=== PATIENT | female | born 1995 | race Caucasian/White ===

== ENCOUNTER → 2018-06-12 | Outpatient (CLI) | payer OTHER ==
[~2018-06-12] MED LIST: CITA40TA12 PO
== END | disposition home or self-care (01) ==
LOC: C.LABSPEC 11:18
PROVIDERS: ATTEND Obstetrics & Gynecology
DX: Z34.82 Encounter for supervision of other normal pregnancy, second trimester (principal)

== ENCOUNTER → 2018-06-16 | Outpatient (CLI) | payer BC, OTHER | LOC: C.LAB1850 14:42 | PROVIDERS: ATTEND Obstetrics & Gynecology | DX: Z34.82 Encounter for supervision of other normal pregnancy, second trimester (principal) ==

== ENCOUNTER 2018-06-27 19:26 | Emergency (ER) | payer OTHER ==
[~2018-06-27] VITALS: Ht 149.9 cm; Wt 84.3 kg
[2018-06-27 19:28] VITALS: TEMP 36.7; Ht 149.9 cm; Wt 84.3 kg
[2018-06-27] MEDS ORDERED: KETOROLAC TROMETHAMINE 30 MG/ML VIAL IV STA (19:57)
[2018-06-27] MEDS ORDERED: TAMSULOSIN HCL 0.4 MG CAP PO ONE (20:00)
[2018-06-27 20:26] LABS: BASO % 0.1 %; BASO ABS # 0.01 K/uL (0-0.2); EOS % 0.6 %; EOS ABS # 0.06 K/uL (0-0.5); HEMATOCRIT 34.4 % (37-47); HEMOGLOBIN 11.3 g/dL (12.0-16.0); IG# 0.03 K/uL (0.00-0.02); LYMPH % 20.8 %; LYMPH ABS # 2.15 K/uL (1.2-3.4); MEAN CELL VOLUME 87.5 fL (80-100); MEAN CORPUSCULAR HEMOGLOBIN 28.8 pg (25-34); MEAN CORPUSCULAR HGB CONC 32.8 g/dl (32-36); MONO % 5.4 %; MONO ABS # 0.56 K/uL (0.11-0.59); NEUT % 72.8 %; NEUT ABS # 7.55 K/uL (1.4-6.5); PLATELET COUNT 229 K/uL (130-400); RED CELL DISTRIBUTION WIDTH CV 12.8 % (11.5-14.5); RED CELL DISTRIBUTION WIDTH SD 41.5 fL (36.4-46.3); WHITE BLOOD COUNT 10.36 K/uL (4.8-10.8)
[2018-06-27 20:40] LABS: BLOOD UREA NITROGEN 7 mg/dl (7-18); CARBON DIOXIDE 25 mmol/L (21-32); CREATININE 0.49 mg/dl (0.60-1.20); GLUCOSE 87 mg/dl (70-99); POTASSIUM 3.3 mmol/L (3.5-5.1); SODIUM 140 mmol/L (136-145)
--- NOTE | 2018-06-27 20:41 | EMERGENCY ROOM VISIT NOTE ---
History First contact with patient: 19:32 Chief Complaint: VAGINAL BLEEDING Stated Complaint: 16 WEEKS , SPOTTING/CRAMPING History of Present Illness The patient is a 23 year old female who presents to the Emergency Room with complaints of spotting and abdominal cramping that has been ongoing intermittently over the last several days. The patient is 16 weeks . She is . She did go into early labor with her first . She denies any infectious symptoms such as fever, chills or dysuria. The patient has not had any known problems with this . She is getting proper care. She has not tried anything [id number] for her symptoms. Review of Systems 10 system review performed and negative unless noted in HPI or below Past Medical/Surgical History Medical Problems: (1) No significant past medical history Surgical Problems: (1) No history of previous surgery Social History Smoking Status: Never Smoker Alcohol Use: none Marital Status: single Occupation Status: employed Current/Historical Medications Scheduled Citalopram Hydrobromide (Celexa), 40 MG PO DAILY Physical Exam Vital Signs Date Time Temp Pulse Resp B/P (MAP) Pulse Ox O2 Delivery O2 Flow Rate FiO2 06/27/18 22:09 88 18 127/65 96 06/27/18 21:11 71 16 132/67 99 Room Air 06/27/18 19:28 36.7 75 16 131/76 99 Room Air Physical Exam VITALS: Vitals are noted on the nurse's note and reviewed by myself. Vital signs stable. GENERAL: 23-year-old female, in no acute distress, nondiaphoretic, well- developed well-nourished. SKIN: The skin was without rashes, erythema, edema, or bruising. . HEAD: Normocephalic atraumatic. EYES: . Conjunctivae without injection, sclerae without icterus. Extraocular movements intact. MOUTH: Mucous membranes moist. NECK: Supple without nuchal rigidity. HEART: Regular rate and rhythm without murmurs gallops or rubs. LUNGS: Clear to auscultation bilaterally without wheezes, rales or rhonchi. No accessory muscle use. ABDOMEN: Positive bowel sounds x 4.Soft, gravid, nontender, without organomegaly. No guarding or rebound tenderness. MUSCULOSKELETAL: No muscle atrophy, erythema, or edema noted. NEURO: Patient was alert and oriented to person place and time. Normal sensation to touch. No focal neurological deficits. Medical Decision & Procedures ER Provider Diagnostic Interpretation: ultrasound IMPRESSION: Normal appearance of the single live second trimester with an composite estimated gestational age of 16 weeks 3 days and estimated date of delivery 12/09/2018. Electronically signed by: Carlos Foster M.D. 06/27/2018 8:59 PM Dictated Date/Time: 06/27/2018 8:56 PM The status of this report is Signed. Draft = Not yet reviewed or approved by Radiologist. Signed = Reviewed and approved by Radiologist. Laboratory Results 06/27/18 19:53 Red Blood Count 3.93, Mean Corpuscular Volume 87.5, Mean Corpuscular Hemoglobin 28.8, Mean Corpuscular Hemoglobin Concent 32.8, Mean Platelet Volume 10.0, Neutrophils (%) (Auto) 72.8, Lymphocytes (%) (Auto) 20.8, Monocytes (%) (Auto) 5.4, Eosinophils (%) (Auto) 0.6, Basophils (%) (Auto) 0.1, Neutrophils # (Auto) 7.55, Lymphocytes # (Auto) 2.15, Monocytes # (Auto) 0.56, Eosinophils # (Auto) 0.06, Basophils # (Auto) 0.01 06/27/18 19:53 Test 06/27/18 19:50 06/27/18 19:53 Urine Color YELLOW Urine Appearance CLEAR (CLEAR) Urine pH 5.5 (4.5-7.5) Urine Specific Brewster 1.009 (1.000-1.030) Urine Protein NEG (NEG) Urine Glucose (UA) NEG (NEG) Urine Ketones NEG (NEG) Urine Occult Blood NEG (NEG) Urine Nitrite NEG (NEG) Urine Bilirubin NEG (NEG) Urine Urobilinogen NEG (NEG) Urine Leukocyte Esterase NEG (NEG) White Blood Count 10.36 K/uL (4.8-10.8) Red Blood Count 3.93 M/uL (4.2-5.4) Hemoglobin 11.3 g/dL (12.0-16.0) Hematocrit 34.4 % (37-47) Mean Corpuscular Volume 87.5 fL (80-100) Mean Corpuscular Hemoglobin 28.8 pg (25-34) Mean Corpuscular Hemoglobin Concent 32.8 g/dl (32-36) Platelet Count 229 K/uL (130-400) Mean Platelet Volume 10.0 fL (7.4-10.4) Neutrophils (%) (Auto) 72.8 % Lymphocytes (%) (Auto) 20.8 % Monocytes (%) (Auto) 5.4 % Eosinophils (%) (Auto) 0.6 % Basophils (%) (Auto) 0.1 % Neutrophils # (Auto) 7.55 K/uL (1.4-6.5) Lymphocytes # (Auto) 2.15 K/uL (1.2-3.4) Monocytes # (Auto) 0.56 K/uL (0.11-0.59) Eosinophils # (Auto) 0.06 K/uL (0-0.5) Basophils # (Auto) 0.01 K/uL (0-0.2) RDW Standard Deviation 41.5 fL (36.4-46.3) RDW Coefficient of Variation 12.8 % (11.5-14.5) Immature Granulocyte % (Auto) 0.3 % Immature Granulocyte # (Auto) 0.03 K/uL (0.00-0.02) Anion Gap 8.0 mmol/L (3-11) Est Creatinine Clear Calc Drug Dose 171.1 ml/min Estimated GFR () > 150.0 Estimated GFR (Non- 139.3 BUN/Creatinine Ratio 15.0 (10-20) Calcium Level 9.0 mg/dl (8.5-10.1) Human Chorionic Gonadotropin, Quant 72868 mIU/mL ED Course Patient was seen and examined Vital signs including blood pressure were reviewed medications list was verified with patient Labs were obtained, and a saline lock was established Imaging was performed and reviewed The case was also discussed with my supervising physician who is in agreement with my plan. Upon reevaluation, the patient was resting comfortably in bed. We discussed her results. She voiced understanding, was comfortable being discharged home. I reviewed discharge instructions the patient. They voiced understanding and had no further questions. Medical Decision Differential diagnosis: Spotting during , threatened miscarriage, incomplete spontaneous , subchorionic hemorrhage, placental abruption, among others were entertained This patient is a 23-year-old female, 16 weeks , that presents to the emergency department complaining of intermittent cramping and light spotting for the last several days., Her vital signs are stable. Her abdomen was benign. Her workup reveals no leukocytosis. Her H&H is stable. Her blood type is O+-no need for RhoGam. An ultrasound was performed. There is a single viable fetus. Heart rate is appropriate. At this point, the etiology of the bleeding is unclear. It could be benign. There is a slight chance of miscarriage. This was relayed to the patient. I believe she is stable to be discharged home. I highly advised close follow-up from her [facility] doctor. She was comfortable with this plan. She was cautioned on signs for which to return to the emergency department. This chart was completed in part utilizing [employer] Experience Speech Voice Recognition software. Attempts were made to minimize the grammatical errors, random word insertions, pronoun errors and incomplete sentences. Any formal questions or concerns about the content, text or information contained within the body of this dictation should be directly addressed to the provider for clarification. Medication Reconcilliation Current Medication List: was personally reviewed by me Blood Pressure Screening Patient's blood pressure: Elevated blood pressure Blood pressure disposition: Did not require urgent referral Impression Primary Impression: Vaginal bleeding during Departure Information Dispostion Home / Self-Care Condition GOOD Referrals Rashard Sandoval D.O. (PCP) Devon Ellsworth M.D. Patient Instructions My [facility] Additional Instructions You were evaluated in the emergency department for spotting and cramping during . It is very important for you to follow-up with your [facility] doctor this week. Please call first thing Friday morning for a follow-up appointment. Please wear pads. Do not use tampons. Pelvic rest-nothing in the vagina (no sexual activity) until okay with [facility] Please do not hesitate to return to the emergency department with any new, worsening or concerning symptoms; especially, heavy bleeding such as greater than 2 pads per hour, severe pain or fever It was a pleasure participating in your care chelsea
--- NOTE | 2018-06-27 21:01 | DIAGNOSTIC IMAGING REPORT ---
LTD 1 OR MORE FETUSES CLINICAL HISTORY: 23 years-old Female presenting with bleeding cramping 16 weeks 3 days , spotting and cramping today, . TECHNIQUE: Real-time grayscale and M-mode Doppler ultrasound imaging of the pelvis was performed using a transabdominal probe. Color and spectral Doppler ultrasound imaging of the adnexa was also performed. COMPARISON: 04/12/2018. FINDINGS: Uterus: Single live intrauterine . Femur length 2.1 cm corresponding to gestational age of 16 weeks 1 day. Biparietal diameter 3.5 cm corresponding to a gestational age of 16 weeks 6 days. This is concordant with the patient's history. heart rate 143 beats per minute. Cephalic presentation. Normal amniotic fluid volume. Posterior placental implantation. No perigestational fluid to suggest hemorrhage. Cervix long and closed. Right adnexum: Right ovary not visualized. Left adnexum: Left ovary not visualized. Other: No free fluid. IMPRESSION: Normal appearance of the single live second trimester with an composite estimated gestational age of 16 weeks 3 days and estimated date of delivery 12/09/2018. Electronically signed by: Carlos Foster M.D. 06/27/2018 8:59 PM Dictated Date/Time: 06/27/2018 8:56 PM
[2018-06-27 22:09] VITALS: BP 127/65; PULSE 88; O2SAT 96
== END 2018-06-27 22:10 | disposition home or self-care (01) ==
LOC: C.EDB 19:27
DX: O20.9 Hemorrhage in early pregnancy, unspecified (principal); Z3A.16 16 weeks gestation of pregnancy; Z79.899 Other long term (current) drug therapy

== ENCOUNTER 2018-12-03 03:42 | Inpatient (IN) ==
--- NOTE | 2018-12-03 04:13 | History & Physical Report ---
Date of Service December 03, 2018 Assessment & Plan (1) Previous section: (2) Active labor at term: admit, iv, labs. wants to proceed with c/s. has urge to push. now informed had srom. fhts categ 2 History of Present Illness Chief Complaint: regular ctx, urge to push Primary Care Provider: Rashard Sandoval 23yo at 39+wks ega presents to L&D with cc as noted. She is due to have her elective repeat c/s this am but called overnight with ctx. No rom, no vb. + FM. She feels like she has to poop as well. Cx exam per nurse 5cm, bulging membranes. PNC c/b 1. prior c/s, desires repeat, declines even after presenting in active labor 2. anxiety pnl rh pos, ri, gbs neg obh: c/s x 1 gynh: nl pap, no stds pmh: gerd, h/o depression, anxiety, meneire's disease, heart murmur psh: tonsillectomy, c/s allg: nkda meds: pnv, zantac, prozac sh: no tob/etoh/drugs fh: no dariel anom or mr Allergies Allergy/AdvReac Type Severity Reaction Status Date / Time No Known Allergies Allergy Verified 11/27/18 14:17 Home Medications Home Medications Medication Instructions Recorded Confirmed Type fluoxetine [Prozac] 10 mg PO DAILY 12/01/18 12/01/18 History vit-iron fum-folic ac 1 tab PO DAILY 12/01/18 12/01/18 History [ Vitamin] ranitidine HCl [Zantac 75] 75 mg PO BID PRN 12/01/18 12/01/18 History Patient History Social History marital status: Single Current Living Situation: Parent and Family Current Living Situation Comment: live4s with parents Feels Safe at Home: Yes Smoking Status: Never smoker Second Hand Exposure: No Hx Alcohol Use: No Hx Substance Use: No Beliefs That Will Affect Care: None Preferred Language: Upper Sorbian Review of Systems per hpi Physical Exam 2 Constitutional: WD/WN, vitals as above Respiratory: Auscultation: lungs clear to auscultation bilaterally Cardiovascular: Rate/Rhythm: regular rate and regular rhythm Gastrointestinal (Abdomen): soft gravid nt Musculoskeletal: no edema Neurologic: grossly normal Genitourinary: Manual OB Exam: + cervical dilation 6 cm, + cervical effacement 90% and + station -2 OB Exam Monitor Tracing: + external FHT monitor used (125 mod variability, variable decels), + external uterine monitor used (q3) and + category II
[2018-12-03] MEDS ORDERED: LACTATED RINGER'S 1,000 ML IV SCH ×2 (04:15→15:13)
[2018-12-03] MEDS ORDERED: fentaNYL citrate 100 MCG/2 ML VIAL ONE ×2 (04:18→08:52)
[2018-12-03] MEDS ORDERED: ePHEDrine sulfate 50 MG/ML AMP ONE (04:18)
[2018-12-03] MEDS ORDERED: BUPIVACAINE 0.25% 30 ML VIAL ONE ×2 (04:18→08:53)
[2018-12-03] MEDS ORDERED: fentaNYL 2MCG/ML ROPIV 1.25MG/ML 100 ML BAG EPI ONE (04:19)
[2018-12-03 04:27] LABS: Basophils # (auto) 0.01 K/uL (0-0.2); Basophils % (auto) 0.1 %; Eosinophils # (auto) 0.06 K/uL (0-0.5); Eosinophils % (auto) 0.4 %; Hematocrit (blood only) 33.6 % (37-47); Immature Granulocytes # (auto) 0.04 K/uL (0.00-0.02); Immature Granulocytes % (auto) 0.3 %; Lymphocytes # (auto) 2.47 K/uL (1.2-3.4); Lymphocytes % (auto) 17.4 %; Mean Corpuscular Volume 82.2 fL (80-100); Mean Platelet Volume 10.1 fL (7.4-10.4); Monocytes # (auto) 0.89 K/uL (0.11-0.59); Monocytes % (auto) 6.3 %; Neutrophils % (auto) 75.5 %; Platelet Count 190 K/uL (130-400); RDW Coefficient of Variation 14.5 % (11.5-14.5); RDW Standard Deviation 43.4 fL (36.4-46.3); Red Blood Count 4.09 M/uL (4.2-5.4); White Blood Count 14.17 K/uL (4.8-10.8)
[2018-12-03] MEDS ORDERED: CITRIC ACID/SODIUM CITRATE 15 ML UDC PO SCH (04:30)
[2018-12-03] MEDS ORDERED: CEFAZOLIN 2,000 MG in SYRINGE 0 ML IV SCH (04:30)
--- NOTE | 2018-12-03 04:33 | Anesthesiology Consultation ---
Date of Service December 03, 2018 Assessment & Plan (1) Encounter for pre-operative examination: Chart Review Chart Review: Patient NOT seen in Pre Admission Testing and Acceptable Risk for Labor Epidural Consults Requested none ASA ASA2 Proposed Anesthesia Anesthesia Type: Labor Epidural and CSE Risk / Benefits Reviewed With: PT / POA / Parent / Guardian, Accepts Plan and Informed Consent Obtained NPO Date Last Intake of Fluids: 12/02/18 Time Last Intake of Fluids: 23:00 Date Last Intake of Solids: 12/02/18 Time Last Intake of Solids: 17:00 History Surgery Operation Date: 12/03/18 04:00 Proposed Procedures p Section in LD - Arleen Mcginnis MD, FACOG Allergies Allergy/AdvReac Type Severity Reaction Status Date / Time No Known Allergies Allergy Verified 11/27/18 14:17 Medications Home Medications Medication Instructions Recorded Confirmed Last Taken fluoxetine [Prozac] 10 mg PO DAILY 12/01/18 12/01/18 12/01/18 07:00 vit-iron fum-folic ac 1 tab PO DAILY 12/01/18 12/01/18 11/30/18 21:00 [ Vitamin] ranitidine HCl [Zantac 75] 75 mg PO BID PRN 12/01/18 12/01/18 12/01/18 07:00 Past Medical History Medical History Depression Anxiety GERD (gastroesophageal reflux disease) Anemia Temporomandibular joint disorder NO LOCKING Valvular heart disease MILD PI Past Family History Family History Mother Hypertension Grandmother Family history of diabetes mellitus Grandmother (Maternal) Family history of diabetes mellitus Past Surgical History Surgical History History of tonsillectomy Previous section 2014 2/2 DISTRESS AT [facility]= PATIENT UNSURE WHAT WAS DONE FAR ANESTHESIA (?GA); "KNOCKED OUT" 2/2 EMERGENT SITUATION History of colonoscopy History of esophagogastroduodenoscopy (EGD) Past Anesthesia History No Hx of Anesthesia Complications and No Family Hx of Anesthesia Complications History of PONV No Motion Sickness Screening History of Motion Sickness: No Social History Smoking Status: Never smoker Hx Alcohol Use: No Hx Substance Use: No substance use type: does not use Exercise / Class Metabolic Activity II 4-5 Yardwork/Stairs/Walk up hill Review of Systems no chest pain or sob Physical Exam ENMT Mouth: no TMJ abnormality Thyromental Distance: > or= 3.5 Finger Breadths Mallampati Class: II Neck normal visual inspection Respiratory normal respiratory effort Auscultation: lungs clear to auscultation bilaterally Cardiovascular Rate/Rhythm: regular rate and regular rhythm Musculoskeletal Spine: normal cervical ROM Neurologic moves all extremities Psychiatric Orientation: alert and oriented x 3 Testing Laboratory Results 12/03/18 04:18
[2018-12-03 04:36] LABS: Mean Corpuscular Hgb Conc 32.7 g/dL (32-36)
--- NOTE | 2018-12-03 05:18 | Obstetrical Progress Note ---
Date of Service December 03, 2018 Assessment & Plan (1) Previous section: (2) Active labor at term: (3) Desires (vaginal after ) trial: pt now desires attempt at . has discussed this with her family and is sure this is what she want to try. aware of risks/alternatives. cannot guarantee that vaginal will be possible or uncomplicated. she desires to proceed. will see how arom advances her labor. fhts categ 2 Subjective now comfortable with epidural. she wants to trial Physical Exam 2 Vital Signs (Past 24 Hours): Last Vital Signs Pulse 78 12/03/18 05:11 BP 141/83 H 12/03/18 05:11 Pulse Ox 99 12/03/18 05:11 Genitourinary: Manual OB Exam: + cervical dilation 9 cm, + cervical effacement 100%, + station -1 and + amniotic fluid (arom) clear OB Exam Monitor Tracing: + external FHT monitor used (130 mod variability, small accels) , + external uterine monitor used (q2-3) and + normal FHT variability
[2018-12-03] MEDS ORDERED: fentaNYL 2MCG/ML ROPIV 1.25MG/ML 100 ML BAG EPI PRN (05:31)
[2018-12-03] MEDS ORDERED: NALBUPHINE HCL INJ 10 MG/ML AMP IV PRN ×2 (05:31→12:19)
[2018-12-03] MEDS ORDERED: LACTATED RINGER'S 1,000 ML IV PRN (05:31)
[2018-12-03] MEDS ORDERED: NALOXONE HCL 1 MG in SODIUM CHLORIDE 0.9% 1000ML 1,000 ML IV PRN ×2 (05:31→12:19)
[2018-12-03] MEDS ORDERED: ONDANSETRON INJ 2 MG/ML 2 ML VIAL IV PRN ×2 (05:31→12:19)
[2018-12-03] MEDS ORDERED: ePHEDrine sulfate 50 MG/ML AMP IV PRN ×2 (05:31→12:19)
[2018-12-03] MEDS ORDERED: DiphenhydrAMINE HCL 50 MG/ML VIAL IV PRN ×2 (05:31→12:19)
[2018-12-03] MEDS ORDERED: NALOXONE HCL 0.4 MG/1 ML VIAL/CARP IV PRN ×2 (05:31→12:19)
[2018-12-03] MEDS: LACTATED RINGER'S 1,000 ML IV SCH ×2 (05:44→10:06)
--- NOTE | 2018-12-03 08:24 | Labor Progress Brief Note ---
Date of Service December 03, 2018 Subjective Pretty comfortable Assessment & Plan (1) Desires (vaginal after ) trial: continue current management. Physical Exam 2 Vital Signs (Past 24 Hours): Last Vital Signs Temp 36.5 C 12/03/18 07:14 Pulse 71 12/03/18 08:21 Resp 20 12/03/18 07:14 BP 127/66 12/03/18 08:21 Pulse Ox 100 12/03/18 08:21 Constitutional: WD/WN, vitals as above Genitourinary: cx--9/100/-2 toco--q2-4min efm--120s with mod variability, accels present, early decels with contractions
--- NOTE | 2018-12-03 09:09 | Anesthesiology Progress Note ---
Date of Service December 03, 2018 Pt c/o pain 8/10. At 0903,pt. epidural was bolused w/ 12 ml 0.17% bupivacaine + 100 mcgs fentanyl + 2 ml preserv. free 0.9nss;neg. aspiration for CSF or Blood; Vital signs were stable. Physical Exam Vital Signs Last Vital Signs Temp 36.6 C 12/03/18 08:59 Pulse 87 12/03/18 09:01 Resp 20 12/03/18 08:59 BP 133/74 12/03/18 08:49 Pulse Ox 100 12/03/18 09:01 Results & Data Medications Administered Lactated Ringer's (Lr) 1,000 mls @ 125 mls/hr IV .Q8H MISSY Stop: 01/02/19 05:04 Last Admin: 12/03/18 05:44 Dose: 125 mls/hr Lactated Ringer's (Lr) 1,000 mls @ 999 mls/hr IV .Q1H1M PRN PRN Reason: Hypotension Stop: 12/04/18 05:30 Last Admin: 12/03/18 08:17 Dose: 999 mls/hr
[2018-12-03] MEDS ORDERED: CITRIC ACID/SODIUM CITRATE 15 ML UDC ONE (10:13)
--- NOTE | 2018-12-03 10:30 | Labor Progress Brief Note ---
Date of Service December 03, 2018 Subjective comfortable after redosing epidural Assessment & Plan (1) Desires (vaginal after ) trial: I have checked the patient three times now. checked her originally after epidural and was . AFter arom I checked at about 7 am and 2. Checked again just now at 10 am and unchanged. At this point, need to either add some gentle pitocin and see if can get this baby to descend and get the rest of the cervix to go away. Then she will need to push. Or proceed with c/ s. The baby is looking better with fewer variables. I am concerned that the baby has not descended basically since I first checked her around 5am. Discussed the pros/cons of pit vs moving forward with c/s. AFter discussion, she would like to move forward with c/s. I am comfortable with giving gentle pitocin, but she does not wish to go any further. r/b/se of c/s had been reviewed by me in the office yesterday as she was a scheduled c/s. Consent resigned as cannot locate other consent. Physical Exam 2 Vital Signs (Past 24 Hours): Last Vital Signs Temp 36.6 C 12/03/18 08:59 Pulse 89 12/03/18 10:26 Resp 20 12/03/18 08:59 BP 137/75 12/03/18 10:12 Pulse Ox 100 12/03/18 10:26 Genitourinary: cx--2 toco--q2-3min efm--120s with mod variability, small early and variables
[2018-12-03] MEDS ORDERED: LIDOCAINE/EPINEPHRINE 2% 1:200,000 20 ML SDV ONE (10:45)
[2018-12-03] MEDS ORDERED: OXYTOCIN 10 UNITS/ML VIAL ONE ×2 (10:46→12:05)
[2018-12-03] MEDS ORDERED: PROMETHAZINE HCL INJ 25 MG/ML 1 ML VIAL ONE (11:45)
[2018-12-03] MEDS ORDERED: MIDAZOLAM HCL 1 MG/ML 2ML VIAL ONE (11:46)
[2018-12-03] MEDS ORDERED: ONDANSETRON INJ 2 MG/ML 2 ML VIAL ONE (11:48)
[2018-12-03] MEDS ORDERED: DEXAMETHASONE SOD INJ 4 MG/ML VIAL ONE (11:50)
[2018-12-03] MEDS ORDERED: MoRPHine SULFATE PF 1 MG/ML 10 ML AMP/VIAL ONE (11:58)
--- NOTE | 2018-12-03 12:08 | Post Operative Brief Note ---
Immediate Post Op Note v1 Date of Surgery December 03, 2018 Pre & Post Diagnosis pre-op diagnosis--iup at 39 1/7 weeks failure to progress failed trial of labor post-op diagnosis--same Operation Date: 12/03/18 04:00 <No data on this case meets the specified criteria> Procedure Operation Date: 12/03/18 04:00 Repeat lower transverse <No data on this case meets the specified criteria> Surgeon Sherie Edwards MD, FACOG Lead Business Analyst Dr. Dominguez, pgy 1 Estimated Blood Loss 700 Findings Consistent with Post-Op Diagnosis Drains Douglas Catheter (16 F Douglas catheter placed prior to entry to OR - anesthesia will monitor output throughout case)
[2018-12-03] MEDS ORDERED: OXYTOCIN 20 UNITS in LACTATED RINGER'S 1,000 ML IV SCH (12:15)
[2018-12-03] MEDS ORDERED: NALOXONE HCL 0.08 MG in SYRINGE 1.8 ML IV PRN (12:19)
[2018-12-03] MEDS ORDERED: PROMETHAZINE HCL 25 MG in SODIUM CHLORIDE 0.9% 50 ML IV PRN (12:19)
[2018-12-03] MEDS ORDERED: MoRPHine SULFATE PF 1 MG/ML 10 ML AMP/VIAL EPI ONE (12:19)
[2018-12-03] MEDS ORDERED: LACTATED RINGER'S 500 ML IV PRN (12:19)
--- NOTE | 2018-12-03 12:19 | Anesthesia Procedure Note ---
Date of Service December 03, 2018 Anesthesia Post Epidural Note Vital Signs Vital Signs: Temp Pulse Resp BP Pulse Ox 12/03/18 11:00 113 H 145/69 H 12/03/18 10:57 105 H 20 151/78 H 12/03/18 10:56 107 H 100 12/03/18 10:54 100 H 140/69 12/03/18 10:51 122 H 100 12/03/18 10:46 93 H 100 12/03/18 10:42 100 H 139/75 12/03/18 10:41 87 100 12/03/18 10:36 89 100 12/03/18 10:31 97 H 100 12/03/18 10:27 103 H 139/78 12/03/18 10:26 89 100 12/03/18 10:21 105 H 100 12/03/18 10:16 92 H 100 12/03/18 10:12 90 137/75 12/03/18 10:11 100 H 100 12/03/18 10:06 88 100 12/03/18 10:01 100 H 18 100 12/03/18 09:57 99 H 134/79 12/03/18 09:56 87 100 12/03/18 09:51 102 H 100 12/03/18 09:46 84 100 12/03/18 09:42 99 H 133/76 12/03/18 09:41 96 H 100 12/03/18 09:36 107 H 136/75 100 12/03/18 09:31 105 H 130/67 100 12/03/18 09:26 101 H 100 12/03/18 09:25 86 120/74 12/03/18 09:21 104 H 100 12/03/18 09:20 86 130/82 12/03/18 09:18 101 H 127/78 12/03/18 09:16 81 127/75 100 12/03/18 09:14 108 H 137/76 12/03/18 09:11 113 H 123/68 99 12/03/18 09:10 90 123/64 12/03/18 09:08 90 114/69 12/03/18 09:06 105 H 119/73 100 12/03/18 09:01 87 100 12/03/18 08:59 36.6 C 20 12/03/18 08:56 98 H 100 12/03/18 08:51 112 H 100 12/03/18 08:49 86 133/74 12/03/18 08:46 93 H 99 12/03/18 08:41 86 100 12/03/18 08:36 79 100 12/03/18 08:33 85 133/72 12/03/18 08:31 81 119/68 100 12/03/18 08:29 91 H 118/64 12/03/18 08:27 89 117/60 12/03/18 08:26 84 100 12/03/18 08:25 85 116/58 L 12/03/18 08:24 87 123/74 12/03/18 08:21 71 127/66 100 12/03/18 08:19 82 121/65 12/03/18 08:17 71 112/55 L 12/03/18 08:16 77 99 12/03/18 08:15 90 114/57 L 12/03/18 08:14 94 H 118/53 L 12/03/18 08:11 92 H 100 12/03/18 08:09 93 H 138/76 12/03/18 08:08 20 12/03/18 08:06 78 100 12/03/18 08:01 79 100 12/03/18 07:56 108 H 98 12/03/18 07:54 78 127/69 12/03/18 07:51 84 100 12/03/18 07:46 106 H 100 12/03/18 07:41 114 H 100 12/03/18 07:39 98 H 137/76 12/03/18 07:36 96 H 98 12/03/18 07:31 94 H 97 12/03/18 07:26 94 H 99 12/03/18 07:23 85 138/78 12/03/18 07:21 92 H 100 12/03/18 07:16 87 97 12/03/18 07:14 36.5 C 20 12/03/18 07:11 98 H 100 12/03/18 07:09 88 93 12/03/18 07:08 36.5 C 80 20 132/72 12/03/18 07:06 80 97 12/03/18 07:01 85 99 12/03/18 06:56 83 100 12/03/18 06:53 100 H 126/73 12/03/18 06:51 101 H 100 12/03/18 06:46 92 H 100 12/03/18 06:41 82 98 12/03/18 06:38 81 134/74 12/03/18 06:36 80 100 12/03/18 06:31 82 100 12/03/18 06:26 79 99 12/03/18 06:24 73 141/67 H 12/03/18 06:21 77 99 12/03/18 06:16 89 98 12/03/18 06:11 73 98 12/03/18 06:09 75 121/64 12/03/18 06:06 71 98 12/03/18 06:01 74 100 12/03/18 05:56 81 100 12/03/18 05:54 76 127/79 12/03/18 05:51 68 100 12/03/18 05:46 81 100 12/03/18 05:41 74 100 12/03/18 05:38 74 118/57 L 12/03/18 05:36 70 100 12/03/18 05:31 77 100 12/03/18 05:26 72 100 12/03/18 05:23 72 120/62 12/03/18 05:21 88 99 12/03/18 05:17 83 140/86 12/03/18 05:16 73 100 12/03/18 05:11 78 141/83 H 99 12/03/18 05:08 80 135/76 12/03/18 05:06 75 98 12/03/18 05:05 77 136/78 12/03/18 05:02 82 134/78 12/03/18 05:01 79 99 12/03/18 04:59 78 133/73 12/03/18 04:56 78 130/70 97 12/03/18 04:53 68 125/67 12/03/18 04:51 72 99 12/03/18 04:50 71 127/66 12/03/18 04:47 72 125/67 12/03/18 04:46 73 99 12/03/18 04:44 88 119/65 12/03/18 04:41 98 H 99 12/03/18 04:36 94 H 100 12/03/18 04:35 79 141/73 H 12/03/18 03:45 36.5 C 71 24 130/70 Pain Intensity Bilateral Abdomen: Pain Intensity: 7 Notes Mental Status: alert / awake / arousable Nausea / Vomiting: adequately controlled Pain: adequately controlled Airway Patency, RR, SpO2: stable & adequate BP & HR: stable & adequate Hydration State: stable & adequate Neuraxial Anesthesia: was administered Anesthetic Complications: no major complications apparent Epidural: Removed without complications and With tip intact Notes: epidural cath removed in OR at 1214pm w/ tip intact
--- NOTE | 2018-12-03 12:28 | Anesthesiology Progress Note ---
Date of Service December 03, 2018 Anesthesia Post Procedure Vital Signs Vital Signs: Temp Pulse Resp BP Pulse Ox 12/03/18 12:26 97 H 100 12/03/18 12:21 104 H 97/60 L 98 12/03/18 11:00 113 H 145/69 H 12/03/18 10:57 105 H 20 151/78 H 12/03/18 10:56 107 H 100 12/03/18 10:54 100 H 140/69 12/03/18 10:51 122 H 100 12/03/18 10:46 93 H 100 12/03/18 10:42 100 H 139/75 12/03/18 10:41 87 100 12/03/18 10:36 89 100 12/03/18 10:31 97 H 100 12/03/18 10:27 103 H 139/78 12/03/18 10:26 89 100 12/03/18 10:21 105 H 100 12/03/18 10:16 92 H 100 12/03/18 10:12 90 137/75 12/03/18 10:11 100 H 100 12/03/18 10:06 88 100 12/03/18 10:01 100 H 18 100 12/03/18 09:57 99 H 134/79 12/03/18 09:56 87 100 12/03/18 09:51 102 H 100 12/03/18 09:46 84 100 12/03/18 09:42 99 H 133/76 12/03/18 09:41 96 H 100 12/03/18 09:36 107 H 136/75 100 12/03/18 09:31 105 H 130/67 100 12/03/18 09:26 101 H 100 12/03/18 09:25 86 120/74 12/03/18 09:21 104 H 100 12/03/18 09:20 86 130/82 12/03/18 09:18 101 H 127/78 12/03/18 09:16 81 127/75 100 12/03/18 09:14 108 H 137/76 12/03/18 09:11 113 H 123/68 99 12/03/18 09:10 90 123/64 12/03/18 09:08 90 114/69 12/03/18 09:06 105 H 119/73 100 12/03/18 09:01 87 100 12/03/18 08:59 36.6 C 20 12/03/18 08:56 98 H 100 12/03/18 08:51 112 H 100 12/03/18 08:49 86 133/74 12/03/18 08:46 93 H 99 12/03/18 08:41 86 100 12/03/18 08:36 79 100 12/03/18 08:33 85 133/72 12/03/18 08:31 81 119/68 100 12/03/18 08:29 91 H 118/64 12/03/18 08:27 89 117/60 12/03/18 08:26 84 100 12/03/18 08:25 85 116/58 L 12/03/18 08:24 87 123/74 12/03/18 08:21 71 127/66 100 12/03/18 08:19 82 121/65 12/03/18 08:17 71 112/55 L 12/03/18 08:16 77 99 12/03/18 08:15 90 114/57 L 12/03/18 08:14 94 H 118/53 L 12/03/18 08:11 92 H 100 12/03/18 08:09 93 H 138/76 12/03/18 08:08 20 12/03/18 08:06 78 100 12/03/18 08:01 79 100 12/03/18 07:56 108 H 98 12/03/18 07:54 78 127/69 12/03/18 07:51 84 100 12/03/18 07:46 106 H 100 12/03/18 07:41 114 H 100 12/03/18 07:39 98 H 137/76 12/03/18 07:36 96 H 98 12/03/18 07:31 94 H 97 12/03/18 07:26 94 H 99 12/03/18 07:23 85 138/78 12/03/18 07:21 92 H 100 12/03/18 07:16 87 97 12/03/18 07:14 36.5 C 20 12/03/18 07:11 98 H 100 12/03/18 07:09 88 93 12/03/18 07:08 36.5 C 80 20 132/72 12/03/18 07:06 80 97 12/03/18 07:01 85 99 12/03/18 06:56 83 100 12/03/18 06:53 100 H 126/73 12/03/18 06:51 101 H 100 12/03/18 06:46 92 H 100 12/03/18 06:41 82 98 12/03/18 06:38 81 134/74 12/03/18 06:36 80 100 12/03/18 06:31 82 100 12/03/18 06:26 79 99 12/03/18 06:24 73 141/67 H 12/03/18 06:21 77 99 12/03/18 06:16 89 98 12/03/18 06:11 73 98 12/03/18 06:09 75 121/64 12/03/18 06:06 71 98 12/03/18 06:01 74 100 12/03/18 05:56 81 100 12/03/18 05:54 76 127/79 12/03/18 05:51 68 100 12/03/18 05:46 81 100 12/03/18 05:41 74 100 12/03/18 05:38 74 118/57 L 12/03/18 05:36 70 100 12/03/18 05:31 77 100 12/03/18 05:26 72 100 12/03/18 05:23 72 120/62 12/03/18 05:21 88 99 12/03/18 05:17 83 140/86 12/03/18 05:16 73 100 12/03/18 05:11 78 141/83 H 99 12/03/18 05:08 80 135/76 12/03/18 05:06 75 98 12/03/18 05:05 77 136/78 12/03/18 05:02 82 134/78 12/03/18 05:01 79 99 12/03/18 04:59 78 133/73 12/03/18 04:56 78 130/70 97 12/03/18 04:53 68 125/67 12/03/18 04:51 72 99 12/03/18 04:50 71 127/66 12/03/18 04:47 72 125/67 12/03/18 04:46 73 99 12/03/18 04:44 88 119/65 12/03/18 04:41 98 H 99 12/03/18 04:36 94 H 100 12/03/18 04:35 79 141/73 H 12/03/18 03:45 36.5 C 71 24 130/70 Pain Intensity Bilateral Abdomen: Pain Intensity: 7 Notes Mental Status: alert / awake / arousable Patient Amnestic to Procedure: Yes Nausea / Vomiting: adequately controlled Pain: adequately controlled Airway Patency, RR, SpO2: stable & adequate BP & HR: stable & adequate Hydration State: stable & adequate Anesthetic Complications: no major complications apparent
[2018-12-03] MEDS ORDERED: NO NARCOTICS OR SEDATIVES SCH (12:30)
[2018-12-03] MEDS ORDERED: DC INTRASPINAL MORPHINE SCH (12:30)
[2018-12-03] MEDS ORDERED: SODIUM CHLORIDE 0.9% 1000ML 1,000 ML IV SCH (12:30)
--- NOTE | 2018-12-03 12:56 | Operative Report ---
DATE OF OPERATION: 12/03/2018 PREOPERATIVE DIAGNOSES: 1. Intrauterine at 39 and 1/7 weeks. 2. Active labor. 3. Failure to descend and progress. 4. Failed trial of labor. POSTOPERATIVE DIAGNOSES: 1. Intrauterine at 39 and 1/7 weeks. 2. Active labor. 3. Failure to descend and progress. 4. Failed trial of labor. PROCEDURE: Repeat lower transverse section with a left cervical extension. SURGEON: Sherie Edwards MD AUTO BODY ESTIMATOR: Alberto, PGY-1. ESTIMATED BLOOD LOSS: 700 mL. FLUIDS: 1600 mL. URINE OUTPUT: 200 mL of dark concentrated urine drained from the bladder at the end of the procedure. INDICATIONS: The patient is a 2, para 1-0-0-1 who is scheduled for a repeat section on the morning of admission. She presented to labor and delivery in active labor at 8-9 cm dilated with a bulging bag. She received an epidural anesthetic and became comfortable and decided that she would like to try a trial of labor. Amniotomy was performed for clear fluid. I checked the patient's cervix at 5 a.m. after the epidural, she was 8, 90, -2. I checked her at 7:00 a.m. after rupture of membranes previously and she was 9, 90 and -2. I checked her again at 10:00 and she was 9, 90 and -2. The fetus was category 2 throughout labor with variables with contractions, but good variability. We had a long discussion at this point in time about instituting gentle dilute Pitocin to see if we could get the cervix to go away and the baby to come down in the pelvis or to proceed with a section. The risks, benefits and side effects of both were discussed with the patient and she decided to proceed with section. FINDINGS: At the time of surgery reveal a viable male in OA presentation, significant coning to the head. No nuchal cord. Apgars were 8 and 9. Fluid was clear. Uterus, tubes, and ovaries were normal bilaterally. COMPLICATIONS: Left cervical extension that was identified and repaired. DRAINS: Douglas. DISPOSITION: To recovery room in stable condition. DESCRIPTION OF PROCEDURE: The patient was taken to the operating room where she was identified verbally and by bracelet. She was transferred to the operating table, placed in leftward tilt. A Douglas catheter had previously been placed. The patient had used the hexidine wipes for wiping herself off the night before surgery noted significant redness and itching of the skin, so a Betadine prep was performed. She was prepped and draped in normal sterile fashion. Timeout was held, identifying correct patient, procedure, positioning, equipment and preoperative antibiotics. There were no concerns. A Pfannenstiel skin incision was made with the knife and taken down to the underlying layer of fascia with the knife. Bleeding was attended to with Bovie electrocautery. The fascia was incised with a knife and taken out laterally with scissors. The superior edge of the fascial incision was grasped, elevated and the underlying layer of rectus muscle was taken off bluntly with scissors and cautery. In a similar fashion, the inferior edge of the fascial incision was grasped, elevated and the underlying layer of rectus muscle was taken off bluntly and with cautery. The muscles were bluntly in the midline. The peritoneum was entered sharply with scissors. An armoring machine operator's finger was placed into the abdomen and no adhesions were noted. The peritoneum was taken superiorly and inferiorly with good visualization of the bladder. An incision was stretched. Bladder blade was placed. The bladder had healed high and there were several veins noted at the bladder edge. Bladder flap was created by grasping the vesicouterine peritoneum with a snap entering with scissors, taken out laterally and creating the bladder flap digitally. The bladder blade was replaced. The lower uterine segment was intact. A hysterotomy incision was scored with the knife. The uterus was entered with a snap and the incision was stretched with the armoring machine operator's fingers. The armoring machine operator's hand was placed into the hysterotomy incision and the head was delivered atraumatically up through the incision. It was wedged into the pelvis. There was no nuchal cord. The nose and mouth were bulb suctioned. The rest of the infant was then delivered without difficulty, there was a cry on the operating field, the cord was clamped and cut and handed off to the waiting vice president research for drying and attention. Cord blood and segment were obtained. Placenta was manually extracted and the uterus was cleared of all clot and debris with moistened laparotomy sponges. The uterus was exteriorized. The edges of the incision were noted and there was a left cervical extension. This was identified. The cornua was identified and it was reapproximated starting at the bottom left of the cervical excision making its way up into the midline and then another stitch was begun at the right corner of the incision, carried to the midline. Once this was identified, an imbricating stitch was placed over this incision. The posterior cul-de-sac was irrigated and cleared of all clot and debris. The incision was again inspected and found to be hemostatic; however, when placed back into the uterus, there was found to be a bleeding artery at the left edge of the cervical extension. This was very carefully attended to with a couple of [id number] sutures of 0 Vicryl, being careful to draw away accessory tissue and stay close to the uterine/cervical edge. Once hemostasis was assured, Evista was placed over the incision for attention to some slight oozing edges at the left cervical extension. The muscles were then reapproximated in the midline with interrupted sutures of 0 Vicryl. The rectus muscles were examined and found to be hemostatic. The fascia was reapproximated starting at the edges meeting in the midline. Subcuticular tissue was copiously irrigated with warm normal saline. Bleeding was attended to with Bovie electrocautery and the skin was then closed with subcuticular stitch of 4-0 Vicryl. All sponge, needle counts were correct x2. The patient tolerated the procedure well and was taken to the recovery room in stable condition. I attest to the content of the Intraoperative Record and any orders documented therein. Any exception s are noted below.
[2018-12-03] MEDS ORDERED: MAGNESIUM HYDROXIDE SUSP 30 ML UDC PO PRN (15:13)
[2018-12-03] MEDS ORDERED: SUPERCREAM 0.870% 15 GM JAR EXT PRN (15:13)
[2018-12-03] MEDS ORDERED: SENNA 8.6 MG TAB PO PRN (15:13)
[2018-12-03] MEDS ORDERED: BENZOCAINE 20% AER SPR 82.5 GM CAN EXT PRN (15:13)
[2018-12-03] MEDS ORDERED: HYDROCORTISONE ACETATE 25 MG SUPP PR PRN (15:13)
[2018-12-03] MEDS ORDERED: DIPHTHERIA/TETANUS/PERTUSSIS 0.5 ML SYR/VIAL IM ONE (15:13)
[2018-12-03] MEDS: SIMETHICONE 80 MG CHEW PO SCH ×3 (16:41→19:41)
[2018-12-03] MEDS: KETOROLAC 30 MG/ML VIAL IV PRN (17:14)
[2018-12-03] MEDS: DOCUSATE SODIUM 100 MG CAP PO SCH (19:41)
[2018-12-04] MEDS: KETOROLAC 30 MG/ML VIAL IV PRN (01:55)
[2018-12-04] MEDS ORDERED: ONDANSETRON INJ 2 MG/ML 2 ML VIAL IV PRN (06:20)
[2018-12-04] MEDS ORDERED: KETOROLAC 30 MG/ML VIAL IV PRN (06:20)
[2018-12-04] MEDS ORDERED: MEPERIDINE HCL 50 MG/ML CARP IV PRN (06:20)
[2018-12-04] MEDS ORDERED: DiphenhydrAMINE HCL 50 MG/ML VIAL IV PRN (06:20)
[2018-12-04] MEDS ORDERED: PROMETHAZINE HCL 25 MG in SODIUM CHLORIDE 0.9% 50 ML IV PRN (06:20)
[2018-12-04 07:22] LABS: Hematocrit (blood only) 24.4 % (37-47); Hemoglobin 7.9 g/dL (12.0-16.0); Mean Corpuscular Hgb Conc 32.4 g/dL (32-36); Mean Corpuscular Volume 82.4 fL (80-100); Mean Platelet Volume 9.6 fL (7.4-10.4); Platelet Count 198 K/uL (130-400); RDW Coefficient of Variation 14.9 % (11.5-14.5); RDW Standard Deviation 44.8 fL (36.4-46.3); Red Blood Count 2.96 M/uL (4.2-5.4); White Blood Count 17.61 K/uL (4.8-10.8)
--- NOTE | 2018-12-04 07:33 | Anesthesiology Progress Note ---
Date of Service December 04, 2018 Anesthesia Post Procedure Vital Signs Vital Signs: Temp Pulse Pulse Resp BP BP Pulse Ox 12/04/18 05:12 16 95 12/04/18 04:23 14 95 12/04/18 03:30 37 C 88 16 93/42 L 97 12/04/18 02:19 16 97 12/04/18 01:16 16 94 12/04/18 00:30 16 97 12/03/18 23:55 36.8 C 81 16 109/50 L 96 12/03/18 22:42 16 95 12/03/18 21:40 18 98 12/03/18 20:40 16 98 12/03/18 19:40 36.6 C 16 106/60 98 12/03/18 18:40 14 95 12/03/18 17:40 18 99 12/03/18 16:40 16 99 12/03/18 15:50 37 C 18 120/66 98 12/03/18 14:40 36.8 C 18 118/64 100 12/03/18 14:26 80 100 12/03/18 14:21 79 100 12/03/18 14:19 76 137/78 12/03/18 14:16 77 100 12/03/18 14:15 36.7 C 18 12/03/18 14:11 85 100 12/03/18 14:06 82 100 12/03/18 14:01 73 100 12/03/18 13:56 78 100 12/03/18 13:51 78 100 12/03/18 13:49 74 138/69 12/03/18 13:46 79 100 12/03/18 13:45 18 12/03/18 13:41 78 100 12/03/18 13:38 76 88 L 12/03/18 13:36 80 100 12/03/18 13:31 84 100 12/03/18 13:26 88 100 12/03/18 13:21 88 100 12/03/18 13:18 85 147/68 H 12/03/18 13:16 88 20 100 12/03/18 13:15 20 12/03/18 13:11 76 100 12/03/18 13:08 79 114/63 12/03/18 13:06 82 100 12/03/18 13:05 20 12/03/18 13:01 85 100 12/03/18 12:58 90 107/58 L 12/03/18 12:56 79 100 12/03/18 12:55 18 12/03/18 12:51 83 100 12/03/18 12:48 88 101/58 L 12/03/18 12:46 88 100 12/03/18 12:45 20 12/03/18 12:41 95 H 100 12/03/18 12:38 96 H 103/62 12/03/18 12:36 82 100 12/03/18 12:35 20 12/03/18 12:31 101 H 100 12/03/18 12:28 88 95/54 L 12/03/18 12:26 97 H 100 12/03/18 12:25 18 12/03/18 12:21 104 H 97/60 L 98 12/03/18 12:16 36.5 C 18 12/03/18 11:00 113 H 145/69 H 12/03/18 10:57 105 H 20 151/78 H 12/03/18 10:56 107 H 100 12/03/18 10:54 100 H 140/69 12/03/18 10:51 122 H 100 12/03/18 10:46 93 H 100 12/03/18 10:42 100 H 139/75 12/03/18 10:41 87 100 12/03/18 10:36 89 100 12/03/18 10:31 97 H 100 12/03/18 10:27 103 H 139/78 12/03/18 10:26 89 100 12/03/18 10:21 105 H 100 12/03/18 10:16 92 H 100 12/03/18 10:12 90 137/75 12/03/18 10:11 100 H 100 12/03/18 10:06 88 100 12/03/18 10:01 100 H 18 100 12/03/18 09:57 99 H 134/79 12/03/18 09:56 87 100 12/03/18 09:51 102 H 100 12/03/18 09:46 84 100 12/03/18 09:42 99 H 133/76 12/03/18 09:41 96 H 100 12/03/18 09:36 107 H 136/75 100 12/03/18 09:31 105 H 130/67 100 12/03/18 09:26 101 H 100 12/03/18 09:25 86 120/74 12/03/18 09:21 104 H 100 12/03/18 09:20 86 130/82 12/03/18 09:18 101 H 127/78 12/03/18 09:16 81 127/75 100 12/03/18 09:14 108 H 137/76 12/03/18 09:11 113 H 123/68 99 12/03/18 09:10 90 123/64 12/03/18 09:08 90 114/69 12/03/18 09:06 105 H 119/73 100 12/03/18 09:01 87 100 12/03/18 08:59 36.6 C 20 12/03/18 08:56 98 H 100 12/03/18 08:51 112 H 100 12/03/18 08:49 86 133/74 12/03/18 08:46 93 H 99 12/03/18 08:41 86 100 12/03/18 08:36 79 100 12/03/18 08:33 85 133/72 12/03/18 08:31 81 119/68 100 12/03/18 08:29 91 H 118/64 12/03/18 08:27 89 117/60 12/03/18 08:26 84 100 12/03/18 08:25 85 116/58 L 12/03/18 08:24 87 123/74 12/03/18 08:21 71 127/66 100 12/03/18 08:19 82 121/65 12/03/18 08:17 71 112/55 L 12/03/18 08:16 77 99 12/03/18 08:15 90 114/57 L 12/03/18 08:14 94 H 118/53 L 12/03/18 08:11 92 H 100 12/03/18 08:09 93 H 138/76 12/03/18 08:08 20 12/03/18 08:06 78 100 12/03/18 08:01 79 100 12/03/18 07:56 108 H 98 12/03/18 07:54 78 127/69 12/03/18 07:51 84 100 12/03/18 07:46 106 H 100 12/03/18 07:41 114 H 100 12/03/18 07:39 98 H 137/76 12/03/18 07:36 96 H 98 Pain Intensity Bilateral Abdomen: Pain Intensity: 7 Notes Mental Status: alert / awake / arousable Patient Amnestic to Procedure: Yes Nausea / Vomiting: adequately controlled Pain: adequately controlled Airway Patency, RR, SpO2: stable & adequate BP & HR: stable & adequate Hydration State: stable & adequate Neuraxial Anesthesia: sensory block resolved Anesthetic Complications: no major complications apparent and Pt Satisfied with anesthetic care Notes: The patient denies headache, back pain. States she has some dizziness.
[2018-12-04 08:04] LABS: Basophils # (auto) 0.01 K/uL (0-0.2); Basophils % (auto) 0.1 %; Eosinophils # (auto) 0.02 K/uL (0-0.5); Eosinophils % (auto) 0.1 %; Immature Granulocytes # (auto) 0.05 K/uL (0.00-0.02); Immature Granulocytes % (auto) 0.3 %; Lymphocytes # (auto) 2.56 K/uL (1.2-3.4); Lymphocytes % (auto) 14.5 %; Monocytes # (auto) 1.46 K/uL (0.11-0.59); Monocytes % (auto) 8.3 %; Neutrophils # (auto) 13.51 K/uL (1.4-6.5); Neutrophils % (auto) 76.7 %; Polychromasia 1+
[2018-12-04] MEDS: SIMETHICONE 80 MG CHEW PO SCH ×4 (08:24→20:56)
[2018-12-04] MEDS: DOCUSATE SODIUM 100 MG CAP PO SCH ×2 (08:24→20:56)
[2018-12-04] MEDS: FERROUS SULFATE 325 MG TAB PO SCH (08:24)
[2018-12-04] MEDS: PRENATAL VITAMIN 1 TAB PO SCH (08:25)
[2018-12-04] MEDS: FLUOXETINE HCL 10 MG CAP PO SCH (08:25)
--- NOTE | 2018-12-04 08:44 | Obstetrical Progress Note ---
Date of Service <Francesco Dominguez MD - Last Filed: 12/04/18 08:46> December 04, 2018 Assessment & Plan <Francesco Dominguez MD - Last Filed: 12/04/18 08:46> (1) Status post repeat low transverse section: Cody Gómez is a 23 year old who is day 1 s/p Vital signs reviewed; Hypotensive this morning at 93/42and dizzy getting out of bed Hemoglobin of 7.9 this morning Will continue to monitor and consider rechecking hemoglobin later on today. GBS -, Blood type O+, Rubella Immune Exam Otherwise normal Bottle Feeding Still awaiting ambulation and spontaneous urination will continue to monitor, may have to recatheterize. Subjective <Francesco Dominguez MD - Last Filed: 12/04/18 08:46> Ambulation: limited ambulation Voiding: baron catheter in place (Pulled this morning, no spontaneous urination yet) Passing Gas:: Yes Diet Tolerance:: regular diet Lochia:: Small Feeding Type:: bottle feeding Ms Gómez is feeling tired and weak, she had her baron pulled early this morning which had good urine output. She has yet to void spontaneously because when she went to stand up this morning she began to feel dizzy and immediately laid back down. She is endorsing moderate pain at her incision site, and some mild aches bilaterally in her calfs. No other complaints at this time. Baby is doing well. Constitutional: no fever and no chills Respiratory: no cough and no dyspnea Cardiovascular: no chest pain and no dyspnea Gastrointestinal: + abdominal pain (At incision); no nausea and no vomiting Physical Exam <Francesco Dominguez MD - Last Filed: 12/04/18 08:46> Vital Signs (Past 24 Hours) Last Vital Signs Temp 37 C 12/04/18 03:30 Pulse 88 12/04/18 03:30 Resp 16 12/04/18 05:12 BP 93/42 L 12/04/18 03:30 Pulse Ox 95 12/04/18 05:12 Constitutional well developed, well nourished, + obese, cooperative, comfortable and + lethargic Pale Respiratory normal respiratory effort, lungs clear to auscultation Cardiovascular Rate/Rhythm: regular rate and regular rhythm Extremities: + calf tenderness (calf tenderness b/l very mild without swelling, color or temperature change) Genitourinary OB Exam Abdomen: + fundal height (Low transverse scar clean, dry and without any current leaking of fluid or sign of infection) Fundus: + firm; not tender <Sherie Edwards MD, FACOG - Last Filed: 12/04/18 08:56> Co-Signing Physician Notes Resident Physician Supervision Note: I interviewed and examined the patient. Discussed with Dr. Dominguez and agree with findings and plan as documented in the note. Any exceptions or clarifications are listed here: Hgb this am was 7.9 down from 11. Slightly hypotensive this am, given fluid bolus. Excellent urine output. Not tachycardic. Her belly is soft and appropriately tender for postop. Do not suspect active bleeding. May have just been symptomatic as it was her first attempt to get out of bed. Will continue to monitor closely and if continues to be symptomatic will need to consider transfusion. Documented By: Sherie Edwards MD, FACOG
--- NOTE | 2018-12-04 09:54 | Obstetrical Progress Note ---
Date of Service <Francesco Dominguez MD - Last Filed: 12/04/18 09:54> December 04, 2018 Assessment & Plan <Francesco Dominguez MD - Last Filed: 12/04/18 09:54> (1) Status post repeat low transverse section: Still symptomatic, but improving will continue to recheck and ambulate with assistance for now. If she does not improve will order another H and H. Calf pain is improved no further issues at this time. Subjective <Francesco Dominguez MD - Last Filed: 12/04/18 09:54> Ambulation: limited ambulation Voiding: no voiding problems Passing Gas:: Yes Feeding Type:: bottle feeding Patient up and to the bathroom with assistance, continues to feel tired and lightheaded but slightly improved from this morning. Spontaneously urinated without difficulty for first time since baron removed Physical Exam <Francesco Dominguez MD - Last Filed: 12/04/18 09:54> Vital Signs (Past 24 Hours) Last Vital Signs Temp 37 C 12/04/18 03:30 Pulse 88 12/04/18 03:30 Resp 16 12/04/18 05:12 BP 93/42 L 12/04/18 03:30 Pulse Ox 95 12/04/18 05:12 Constitutional well developed, well nourished, + obese, cooperative, comfortable and + lethargic Respiratory normal respiratory effort, lungs clear to auscultation Cardiovascular Rate/Rhythm: regular rate and regular rhythm Extremities: + calf tenderness (calf tenderness b/l very mild without swelling, color or temperature change) Genitourinary OB Exam Abdomen: + fundal height (Low transverse scar clean, dry and without any current leaking of fluid or sign of infection) Fundus: + firm; not tender <Mounika Sanchez DO - Last Filed: 12/04/18 12:00> Co-Signing Physician Notes Will recheck H/H due to still feeling symptomatic.
[2018-12-04] MEDS: OXYCODONE/ACETAMINOPHEN 5mg/325mg TAB PO PRN ×4 (10:28→22:49)
[2018-12-04] MEDS: IBUPROFEN 600 MG TAB PO PRN ×4 (10:29→22:49)
[2018-12-04 12:55] LABS: Hematocrit (blood only) 22.9 % (37-47); Hemoglobin 7.4 g/dL (12.0-16.0)
--- NOTE | 2018-12-04 13:55 | Obstetrical Progress Note ---
Date of Service <Francesco Dominguez MD - Last Filed: 12/04/18 13:55> December 04, 2018 Assessment & Plan <Francesco Dominguez MD - Last Filed: 12/04/18 13:55> (1) Status post repeat low transverse section: Still symptomatic, with elevated pulse, lethargy, pallor, and fatigue and malaise. Hemoglobin at 1230 of 7.4 likely dilutional from fluid bolus this morning. Less likely from any current acute hemorrhagic process. Discussed pros and cons of transfusion with patient and she is in agreement to transfuse at this time Consent signed and put in chart Will transfuse 2 units PRBC and re evaluate Subjective <Francesco Dominguez MD - Last Filed: 12/04/18 13:55> Ambulation: limited ambulation Voiding: no voiding problems Passing Gas:: Yes Diet Tolerance:: regular diet Lochia:: Small Feeding Type:: bottle feeding Ms Gómez still symptomatic with positional light headedness, fatigue and lethargy. Had discussion with patient based on latest hemoglobin reading about transfusion. After explaining potential risks and complications of the procedure , she agreed she doesn't feel right and is in favor of being transfused at this time. Physical Exam <Francesco Dominguez MD - Last Filed: 12/04/18 13:55> Vital Signs (Past 24 Hours) Last Vital Signs Temp 36.6 C 12/04/18 12:15 Pulse 96 H 12/04/18 12:15 Resp 18 12/04/18 12:15 BP 117/68 12/04/18 12:15 Pulse Ox 98 12/04/18 12:15 Constitutional well developed, well nourished, + obese, cooperative, comfortable and + lethargic Respiratory normal respiratory effort, lungs clear to auscultation Cardiovascular Rate/Rhythm: regular rate and regular rhythm Extremities: + calf tenderness (calf tenderness b/l very mild without swelling, color or temperature change) Genitourinary OB Exam Abdomen: + fundal height (Low transverse scar clean, dry and without any current leaking of fluid or sign of infection) Fundus: + firm; not tender <Mounika Sanchez DO - Last Filed: 12/04/18 13:57> Co-Signing Physician Notes I have seen/examined patient. I have read above note performed by resident and I agree with above. Any changes/additions are as follows: Discussed transfusion with patient - reviewed RBA, informed consent. Questions answered. Given her symptomatic anemia, I believe blood transfusion will be therapeutic for her. She agrees. Mounika Sanchez DO [facility] CENTERMarie SPANGLER
[2018-12-04] MEDS ORDERED: BISACODYL 5 MG TABEC PO SCH (20:00)
--- NOTE | 2018-12-05 06:42 | Obstetrical Progress Note ---
Date of Service <Francesco Dominguez MD - Last Filed: 12/05/18 06:45> December 05, 2018 Assessment & Plan <Francesco Dominguez MD - Last Filed: 12/05/18 06:45> (1) Status post repeat low transverse section: Cody Gómez is a 23 year old who is day 2 s/p C/S Transfused 2 units PRBC's yesterday, vital signs and symptoms improved today New symptom of pain on inspiration with vague calf pain yesterday Will get CTPA because of PE concern Hemoglobin pending this morning post transfusion GBS -, Blood type O+, Rubella Immune Exam Otherwise normal; calf pain gone Bottle Feeding Ambulating to bathroom better will continue to monitor today. Subjective <Francesco Dominguez MD - Last Filed: 12/05/18 06:45> Ambulation: ambulating normally Voiding: no voiding problems Passing Gas:: Yes Diet Tolerance:: regular diet Lochia:: Small Feeding Type:: bottle feeding Ms. Gómez reports to be doing better this morning with her positional light headedness and fatigue. She does endorse a new symptom of pain on deep inhalation which has started overnight. She denies any cough, shortness of breath, palpitations, or calf pain at this time. She also reports moderate pain at her incision site, but says it is well controlled with her medication. No other questions or concnerns at this time. Constitutional: no fever and no chills Respiratory: + pain on inspiration; no cough and no dyspnea Cardiovascular: no chest pain and no dyspnea Gastrointestinal: + abdominal pain (At incision); no nausea and no vomiting Physical Exam <Francesco Dominguez MD - Last Filed: 12/05/18 06:45> Vital Signs (Past 24 Hours) Last Vital Signs Temp 36.9 C 12/04/18 23:35 Pulse 89 12/04/18 23:35 Resp 18 12/04/18 23:35 BP 123/71 12/04/18 23:35 Pulse Ox 97 12/04/18 23:35 Constitutional well developed, well nourished, + obese, cooperative, comfortable and + lethargic Respiratory normal respiratory effort, lungs clear to auscultation Cardiovascular Rate/Rhythm: regular rate and regular rhythm Heart Sounds: normal S1 and normal S2; no click, no gallop, no murmur and no cardiac rub Extremities: + calf tenderness (calf tenderness b/l very mild without swelling, color or temperature change) Genitourinary OB Exam Abdomen: + fundal height (Low transverse scar clean, dry and without any current leaking of fluid or sign of infection) Fundus: + firm; not tender <Mounika Sanchez, - Last Filed: 12/05/18 06:53> Co-Signing Physician Notes I have seen/examined patient. I have read above note performed by resident and I agree with above. Any changes/additions are as follows: POD#2 doing well. Received 2u PRBC yesterday due to symptomatic anemia. Today, she is feeling much better - dizziness/weakness has resolved and BP has improved. Awaiting H/H this morning. However, this morning she told me that she started feeling chest pain last night with deep breaths and is now feeling somewhat short of breath ( this is slightly different from what she told Dr Dominguez during his resident rounds this morning. Vitals are normal, O2 saturation is 97, and lung sounds are clear. However, given her new symptoms and hypercoagulable state , will order CT to r/o PE. Patient is agreeable for this. Mounika Sanchez DO [facility]
[2018-12-05 07:45] LABS: Hematocrit (blood only) 26.3 % (37-47); Hemoglobin 8.6 g/dL (12.0-16.0)
[2018-12-05] MEDS: OXYCODONE/ACETAMINOPHEN 5mg/325mg TAB PO PRN ×3 (08:48→20:59)
[2018-12-05] MEDS: IBUPROFEN 600 MG TAB PO PRN ×3 (08:49→20:58)
[2018-12-05] MEDS: PRENATAL VITAMIN 1 TAB PO SCH (08:49)
[2018-12-05] MEDS: DOCUSATE SODIUM 100 MG CAP PO SCH ×2 (08:49→20:58)
[2018-12-05] MEDS: FERROUS SULFATE 325 MG TAB PO SCH (08:49)
[2018-12-05] MEDS: SIMETHICONE 80 MG CHEW PO SCH ×4 (08:49→20:58)
[2018-12-05] MEDS: FLUOXETINE HCL 10 MG CAP PO SCH (08:50)
[2018-12-05] MEDS ORDERED: IOVERSOL 100ml IV PRN (09:24)
--- NOTE | 2018-12-05 09:38 | CT Scan Report ---
CT angio chest PE protocol CT DOSE: 373.68 mGy.cm HISTORY: 23 years-old Female with PE concern in day 2 post C/S patient. Acute shortness of breath s tatus post section TECHNIQUE: Multiple CTA images of the chest were obtained after the intravenous administration of 94 ml Optiray 320. Coronal and sagittal MIPS were obtained from the axial data set and were submitted f or review. All measurements were obtained according to NASCET criteria. A dose lowering technique wa s utilized adhering to the principles of ALARA. COMPARISON: CTA chest 11/08/2018. FINDINGS: CTA: Heart is normal in size without pericardial effusion. Thoracic aorta is normal in course and caliber without aneurysm or dissection. Imaged great vessels appear patent. Suboptimal contrast opacification of the pulmonary arterial tree secondary to timing with majority of the bolus noted within the SVC. Pulmonary artery is opacified to level the lobar branches and demonstrates no focal filling defects t o suggest pulmonary thromboembolic disease. CT CHEST: Residual thymic tissue noted about the anterior mediastinum. No dominant thyroid nodule. No adenopath y. Trace pleural effusions. No pneumothorax. No focal airspace consolidation to suggest pneumonia. Centr al airways appear patent. Scattered foci of pneumoperitoneum seen about the upper abdomen. Soft tissues and breast parenchyma a ppear unremarkable. Bones appear to be intact. IMPRESSION: 1. No evidence of pulmonary thromboembolic disease. 2. Trace bilateral pleural effusions. 3. No focal airspace consolidation to suggest pneumonia. 4. Scattered foci of pneumoperitoneum about the imaged upper abdomen, likely secondary to recent cesa rean section. The above report was generated using voice recognition software. It may contain grammatical, syntax o r spelling errors. Electronically signed by: Shravan Hightower M.D. 12/05/2018 9:35 AM
[2018-12-05] MEDS ORDERED: BISACODYL 10 MG SUPP PR PRN (12:10)
[2018-12-06] MEDS: IBUPROFEN 600 MG TAB PO PRN ×2 (03:59→09:51)
[2018-12-06] MEDS: OXYCODONE/ACETAMINOPHEN 5mg/325mg TAB PO PRN ×2 (03:59→09:51)
--- NOTE | 2018-12-06 06:56 | Obstetrical Progress Note ---
Date of Service December 06, 2018 Assessment & Plan (1) Status post repeat low transverse section: -CT scan from yesterday shows no sign of DVT. -The patient had the exact same complaints approximately 1 month prior to delivery and was evaluated in the emergency room with a CT for DVT. -Suspect that some of the patient's shortness of breath may be-anxiety/panic attacks. Patient agrees that that is possible -We will discharge the patient home today -Discharge instructions given -We will use exogenous iron to help build up her blood count and will stay on vitamins -Follow-up for 6-week check Subjective Ambulation: ambulating normally Voiding: no voiding problems Diet Tolerance:: regular diet Feeding Type:: bottle feeding Physical Exam Vital Signs (Past 24 Hours) Last Vital Signs Temp 36.6 C 12/05/18 23:00 Pulse 85 12/05/18 23:00 Resp 18 12/05/18 23:00 BP 127/80 12/05/18 23:00 Pulse Ox 100 12/05/18 08:00 Constitutional WD/WN, vitals as above Respiratory Auscultation: lungs clear to auscultation bilaterally Cardiovascular RRR, no murmur, no edema Extremities: no calf tenderness Gastrointestinal (Abdomen) incision clean/dry/intact Musculoskeletal - negative deep calf tenderness
[2018-12-06 07:03] LABS: Hematocrit (blood only) 27.8 % (37-47); Hemoglobin 8.9 g/dL (12.0-16.0)
[2018-12-06] MEDS: FERROUS SULFATE 325 MG TAB PO SCH (08:39)
[2018-12-06] MEDS: SIMETHICONE 80 MG CHEW PO SCH (08:39)
[2018-12-06] MEDS: PRENATAL VITAMIN 1 TAB PO SCH (08:39)
[2018-12-06] MEDS: DOCUSATE SODIUM 100 MG CAP PO SCH (08:39)
[2018-12-06] MEDS: FLUOXETINE HCL 10 MG CAP PO SCH (08:55)
[2018-12-06 09:57] VITALS: BP 135/85; PULSE 74; TEMP 98.2; O2SAT 99
--- NOTE | 2018-12-08 02:41 | Discharge Summary ---
ADMISSION DIAGNOSES: 1. Intrauterine at term. 2. History of previous section. 3. Active labor. DISCHARGE DIAGNOSES: 1. Intrauterine at term. 2. History of previous section. 3. Active labor. 4. Failed trial of labor. 5. Failure to descend. PROCEDURES: Repeat lower transverse section. HISTORY OF PRESENT ILLNESS: The patient is a 23-year-old 2, para 1-0-0-1 at 39+ weeks estimated gestational age who presented to labor and delivery with notes of regular contractions and an urge to push. She presented in the early a.m. on the date, she was due to have her repeat elective section. She notes no rupture of membranes or vaginal bleeding and good movement. She feels rectal pressure. Cervix exam per the nurse was 5 cm with bulging membranes. For the rest of patient's detailed history and physical, please see her history and physical. On exam on admission she was 6 cm dilated, 90% effaced and -2 station. ASSESSMENT: This is an intrauterine at 39 and 1/7 weeks with history of previous section who presents in active labor. HOSPITAL COURSE: The patient was admitted and underwent an epidural anesthesia to get her comfortable. At that point in time, she was checked and found to be 8-9 cm dilated, 90% effaced, and -2 station. Upon discussion, the patient decided that she would like to attempt a trial of labor. The patient underwent an amniotomy for clear fluid and then was managed expectantly. She had a good contraction pattern and heart rate strip was occasionally category II with variable, but otherwise had good variability and positive accels. By 10:00, she was still 9 and -2. The baby had not descended at all. We discussed the options at this point. This has been 5 hours since her original exam by myself and I offered her Pitocin augmentation and explained the risks and benefits associated with that. She decided that she would like to proceed with repeat section. The patient underwent a repeat lower transverse section with a left cervical extension. Estimated blood loss was 700 mL. Findings at the time of surgery revealed a normal uterus, tubes, and ovaries bilaterally. Apgars of the baby were 8 and 9. The patient's postoperative course was complicated by some dizziness and lightheadedness when she first tried to ambulate. Her hemoglobin dropped to 7.4 and the decision was made to transfuse with 2 units packed red blood cells, which was done. The patient then did very well after that. She became asymptomatic. She ambulated without difficulty and voided after removal of her Douglas catheter. On postoperative day #2, she complained of some pain on inspiration and the day before it had some vague calf pain. So a chest CT was obtained, showed no sign of DVT or PE. On further questioning, the patient had exact same complaints approximately 1 month prior to delivery and had a negative CT for DVT. She was discharged home on postoperative day #3, was given a short course of Percocet and ibuprofen and will return in 6 weeks for check.
== END 2018-12-06 14:20 | disposition home or self-care (01) | DRG 787 ==
LOC: 4S1 03:42 → 4S2 14:55

== ENCOUNTER 2021-09-15 20:59 | Inpatient (IN) ==
[2021-09-15] MEDS ORDERED: LACTATED RINGER'S 1,000 ML IV SCH (23:45)
--- NOTE | 2021-09-15 23:48 | History & Physical Report ---
Date of Service September 15, 2021 Assessment & Plan (1) with 38 completed weeks gestation: (2) Previous delivery affecting : Plan: Patient has demonstrated cervical change therefore labor. Is a planned repeat c/s and BTL for Friday. Will now proceed. Discussed r/b/se of surgery including bleeding, transfusion, infection, poor wound healing, damage to surrounding structures with need for further surgery, blood clot in leg lung, heart attack, failure of tubal, ectopic . Consent reviewed and signed and will proceed. History of Present Illness Chief Complaint: contractions Primary Care Provider: Eligio Cavanaugh DO Patient is a 26yowf with IUP at 38 5/7 weeks who presented to labor and delivery with some light bleeding and contractions. Patient had planned c/s and btl for Friday with Dr. Marrufo. NO intercourse. Over course of observation, contractions increased and on recheck, patient went from 1+ to 3cm demonstrating likely early labor. complicated by obesity. COVID on 09/13 was negative. GBS negative. Patient also desires TL and had signed consent with Dr. Marrufo for that with her planned c/s on Friday. We discussed that she is very young and her risk for regret is large. She discussed this is her third c/s and she would never want to do this again. Discussed options including hormones and LTRC options . She declines all of these. OB Labs: Blood Type O Positive 02/23/21 Antibody Screen NEGATIVE 02/23/21 Hemoglobin 11.6 g/dL (12.0-16.0) L 08/13/21 Hematocrit 35.0 % (37-47) L 08/13/21 Mean Corpuscular Volume 90.2 fL (80-100) 08/13/21 Platelet Count 192 K/uL (130-400) 08/13/21 Rubella IgG Antibody Immune (Immune) 02/23/21 Rapid Plasma Reagin Nonreactive (Nonreactive) 02/23/21 Hepatitis B Surface Antigen Neg (Neg) 02/23/21 HIV (1&2) Ab and P24 Ag, 4th Gener Neg (Neg) 02/23/21 Glucose 1 Hour 50 gm Load 105 mg/dl (70-130) 07/06/21 OB Optional Labs: Chlamydia trachomatis RNA NOT DETECTED (NOT DETECTED) 02/23/21 Neisseria gonorrhoeae RNA NOT DETECTED (NOT DETECTED) 02/23/21 Thyroid Stimulating Hormone (TSH) 1.710 uIu/ml (0.300-4.500) 06/28/20 panorama low risk Allergies Allergy/AdvReac Type Severity Reaction Status Date / Time No Known Drug Allergies Allergy Unknown Verified 09/14/21 11:11 Home Medications Medication Instructions Recorded Confirmed Type vit no.95-ferrous 1 tab PO HS 03/07/21 09/14/21 History fumarate 28 mg-folic acid 800 mcg tablet () meclizine 12.5 mg tablet 12.5 mg PO TID PRN #20 tab 07/13/21 09/14/21 Rx ondansetron 4 mg disintegrating 4 mg PO Q8H PRN #10 tab 07/24/21 09/14/21 Rx tablet Patient History Medical History Anemia Anxiety Chronic migraine Depression GERD (gastroesophageal reflux disease) History of syncope Most recent episode 04/2021 possibly r/t overheating per neurology Known hx of vasovagal syncopal episodes per cardiology, previous implantable loop recorder with normal interrogations and borderline positive tilt table. Negative EEG 04/2021. Morbid obesity with BMI of 40.0-44.9, adult Temporomandibular joint disorder No locking Surgical History H/O removal of cyst cyst removal from nose History of colonoscopy History of esophagogastroduodenoscopy (EGD) History of tonsillectomy Previous section 2014 (c/s d/t distress) 12/03/18 (emergent c/s > bolused CSE (x1 attempt, L3/L4)) Family History Mother Anxiety Heart disease Hypertension Meniere disease Grandmother Family history of diabetes mellitus Grandmother (Maternal) Family history of diabetes mellitus Sister Anxiety Heart disease Father Heart disease Aunt Myocardial infarction Uncle Myocardial infarction Denies family history of Ovarian cancer Prostate cancer Breast cancer Colorectal cancer Social History Smoking Status: Never smoker Second Hand Exposure: No; Hx Alcohol Use: No Hx Substance Use: No Preferred Language: Croatian Communication Ability: Effective Visual Impairment: No Limitations Hearing Ability: Normal Molding Press Operator Required: No Beliefs That Will Affect Care: None marital status: Single marital status details: Russell Bruno (27) Current Living Situation: Parent Current Living Situation Comment: lives with 2 children and parents current occupational status: employed 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 Other Information That Helps Us Care for You: No Feels Safe at Home: Yes Safety Concerns: Feels Safe At This Time Childhood Exposure to Second-Hand Smoke: No Dental Care, Regularly: Yes Physical Activity Frequency: 3-4 Times per Week Seatbelt Use: always Sunscreen Use: Yes Assistive Devices: None OB History g1--11/24, 37 weeks, c/s [facility] g2--11/28--term/c/s, 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
[2021-09-15] MEDS ORDERED: MoRPHine SULFATE PF 1 MG/ML 10 ML AMP/VIAL ONE (23:57)
[2021-09-16 00:02] LABS: Hematocrit (blood only) 39.3 % (37-47); Hemoglobin 13.2 g/dL (12.0-16.0); Mean Corpuscular Hemoglobin 30.2 pg (25-34); Mean Corpuscular Hgb Conc 33.6 g/dL (32-36); Mean Corpuscular Volume 89.9 fL (80-100); Mean Platelet Volume 10.2 fL (7.4-10.4); Platelet Count 201 K/uL (130-400); RDW Coefficient of Variation 13.3 % (11.5-14.5); RDW Standard Deviation 43.9 fL (36.4-46.3); Red Blood Count 4.37 M/uL (4.2-5.4); White Blood Count 14.04 K/uL (4.8-10.8)
[2021-09-16] MEDS ORDERED: CITRIC ACID/SODIUM CITRATE 15 ML UDC ONE (00:06)
--- NOTE | 2021-09-16 00:06 | Anesthesiology Consultation ---
Date of Service September 16, 2021 Assessment & Plan (1) Encounter for pre-operative examination: Chart Review Chart Review: Acceptable Risk for Surgery History Height/Weight Height: 4 ft 11 in Weight: 104.78 kg Allergies Allergy/AdvReac Type Severity Reaction Status Date / Time No Known Drug Allergies Allergy Unknown Verified 09/14/21 11:11 Medications Home Medications Medication Instructions Recorded Confirmed Last Taken vit no.95-ferrous 1 tab PO HS 03/07/21 09/14/21 07/23/21 fumarate 28 mg-folic acid 800 mcg tablet () meclizine 12.5 mg tablet 12.5 mg PO TID PRN #20 tab 07/13/21 09/14/21 07/21/21 ondansetron 4 mg disintegrating 4 mg PO Q8H PRN #10 tab 07/24/21 09/14/21 Unknown tablet Past Medical History Medical History Anemia Anxiety Chronic migraine Depression GERD (gastroesophageal reflux disease) History of syncope Most recent episode 04/2021 possibly r/t overheating per neurology Known hx of vasovagal syncopal episodes per cardiology, previous implantable loop recorder with normal interrogations and borderline positive tilt table. Negative EEG 04/2021. Morbid obesity with BMI of 40.0-44.9, adult Temporomandibular joint disorder No locking Past Family History Family History Mother Anxiety Heart disease Hypertension Meniere disease Grandmother Family history of diabetes mellitus Grandmother (Maternal) Family history of diabetes mellitus Sister Anxiety Heart disease Father Heart disease Aunt Myocardial infarction Uncle Myocardial infarction Denies family history of Ovarian cancer Prostate cancer Breast cancer Colorectal cancer Past Surgical History Surgical History H/O removal of cyst cyst removal from nose History of colonoscopy History of esophagogastroduodenoscopy (EGD) History of tonsillectomy Previous section 2014 (c/s d/t distress) 12/03/18 (emergent c/s > bolused CSE (x1 attempt, L3/L4)) Social History Smoking Status: Never smoker Hx Alcohol Use: No Alcohol type: wine alcohol intake frequency: a few times a month Hx Substance Use: No substance use type: does not use Physical Exam Vital Signs Last Vital Signs Temp 37.1 C 09/15/21 21:18 Pulse 88 09/15/21 21:14 Resp 18 09/15/21 21:18 BP 139/83 09/15/21 21:14 Testing Laboratory Results 09/15/21 23:52
[2021-09-16] MEDS ORDERED: MoRPHine SULFATE PF 1 MG/ML 10 ML AMP/VIAL INT SPINAL ONE (00:58)
[2021-09-16] MEDS ORDERED: NALOXONE HCL 0.4 MG/1 ML VIAL/CARP IV PRN (00:58)
[2021-09-16] MEDS ORDERED: diphenhydrAMINE 50 MG/ML VIAL IV PRN ×2 (00:58→17:58)
[2021-09-16] MEDS ORDERED: NALBUPHINE HCL INJ 10 MG/ML AMP IV PRN (00:58)
[2021-09-16] MEDS ORDERED: MoRPHine SULFATE 2 MG/ML CARP IV PRN (00:58)
[2021-09-16] MEDS ORDERED: ePHEDrine sulfate 50 MG/ML AMP IV PRN (00:58)
[2021-09-16] MEDS ORDERED: LACTATED RINGER'S 500 ML IV PRN (00:58)
[2021-09-16] MEDS ORDERED: ONDANSETRON INJ 2 MG/ML 2 ML VIAL IV PRN ×2 (00:58→01:48)
[2021-09-16] MEDS ORDERED: NALOXONE HCL 0.08 MG in SYRINGE 1.8 ML IV PRN (00:58)
[2021-09-16] MEDS ORDERED: KETOROLAC 30 MG/ML VIAL IV PRN ×2 (00:58→01:48)
[2021-09-16] MEDS ORDERED: PROMETHAZINE HCL 12.5 MG in SODIUM CHLORIDE 0.9% 50 ML IV PRN (00:58)
[2021-09-16] MEDS ORDERED: NALOXONE HCL 1 MG in SODIUM CHLORIDE 0.9% 1000ML 1,000 ML IV PRN (00:58)
[2021-09-16] MEDS ORDERED: SODIUM CHLORIDE 0.9% 1000ML 1,000 ML IV SCH (01:00)
[2021-09-16] MEDS ORDERED: NO NARCOTICS OR SEDATIVES SCH (01:00)
[2021-09-16] MEDS ORDERED: DC INTRASPINAL MORPHINE SCH (01:00)
[2021-09-16] MEDS ORDERED: SUCCINYLCHOLINE CHLORIDE 20 MG/ML 10 ML VIAL IV ONE (01:04)
[2021-09-16] MEDS ORDERED: PROPOFOL IV EMULSION 10 MG/ML 20 ML VIAL IV ONE (01:04)
[2021-09-16] MEDS ORDERED: METOCLOPRAMIDE HCL INJ 5 MG/ML 2 ML VIAL ONE (01:04)
[2021-09-16] MEDS ORDERED: ONDANSETRON INJ 2 MG/ML 2 ML VIAL ONE (01:04)
[2021-09-16] MEDS ORDERED: ePHEDrine sulfate 50 MG/ML SYR ONE (01:04)
[2021-09-16] MEDS ORDERED: PHENYLEPHRINE 100MCG/ML 5ML SYR ONE (01:04)
[2021-09-16] MEDS ORDERED: OXYTOCIN 10 UNITS/ML VIAL ONE (01:13)
[2021-09-16] MEDS ORDERED: SERTRALINE HCL 50 MG TABLET PO ONE (01:30)
[2021-09-16] MEDS: OXYTOCIN 20 UNITS in LACTATED RINGER'S 1,000 ML IV SCH ×2 (01:32→09:19)
[2021-09-16] MEDS ORDERED: SUPERCREAM 0.870% 15 GM JAR EXT PRN (01:48)
[2021-09-16] MEDS ORDERED: HYDROCORTISONE ACETATE 25 MG SUPP PR PRN (01:48)
[2021-09-16] MEDS ORDERED: DIPHTHERIA/TETANUS/PERTUSSIS 0.5 ML SYR/VIAL IM ONE (01:48)
[2021-09-16] MEDS ORDERED: MAGNESIUM HYDROXIDE SUSP 30 ML UDC PO PRN (01:48)
[2021-09-16] MEDS ORDERED: BENZOCAINE 20% AER SPR 82.5 GM CAN EXT PRN (01:48)
[2021-09-16] MEDS ORDERED: SENNA 8.6 MG TAB PO PRN (01:48)
--- NOTE | 2021-09-16 01:48 | Operative Report ---
PG Post Operative Report Pre & Post Diagnosis Operation Date: 09/16/21 00:30 Pre-Op Diagnosis: 1. at 38. 5/7 weeks gestation 2. Labor 3. Previous section x2 Post-Op Diagnosis: Same as preop I identified the patient and participated in the time-out.: Yes Procedure Operation Date: 09/16/21 00:30 Actual Procedures p repeat lower transverse Section with bilateral modified damaso tubal ligation - Sherie Edwadrs MD, FACOG Surgeon Sherie Edwards MD, FACOG Patternmaker Sample Dr. Reyes Estimated Blood Loss 600 Findings Consistent with Post-Op Diagnosis viable female infant , apgars 8/9. nl uterus /tubes/ovaries bilaterally Fluids 2600cc Specimens tubal segments Drains baron Anesthesia Type Spinal Complications none Disposition Accompanied Patient To Recovery: Yes Disposition: L&D Indications iup at 38 5/7 weeks who hx of x 2 in labor. desires sterilization Description of Procedure The patient was taken to the operating room where she was identified verbally and by bracelet. She was seated on the operating table where a spinal anesthetic was placed by anesthesia. She was then placed in the supine position with a leftward tilt. A Baron catheter was placed sterilely. the patient was prepped and draped in a normal standard fashion. the anesthetic was tested and found to be adequate. A time-out was held, identifying correct patient, procedure, positioning and preoperative antibiotics. There were no concerns. A Pfannenstiel skin incision was made with a knife and taken down to the underlying layer of fascia with the knife and Bovie electrocautery. Bleeding was attended to with the Bovie. The fascia was incised in the midline with the knife and taken out laterally with scissors. The superior edge of the fascial incision was grasped, elevated and the underlying layer of rectus muscle was taken off bluntly and with scissors. In a similar fashion, the inferior edge of the fascial incision was grasped, elevated and the underlying layer of rectus muscle was taken off bluntly and with scissors. The muscles were bluntly and sharply in the midline. The peritoneum was entered bluntly. The incision was then stretched. The bladder blade was placed. The vesicouterine peritoneum was identified, entered with scissors and taken out laterally with scissors. The bladder flap was created digitally A hysterotomy incision was scored with a knife and the incision was stretched superiorly and inferiorly with the bar machine operator production's fingers. The operators hand was placed into the incision and the head was tight through the incision. Vacuum applied x 1 with one pop off. the bandage scissors were then use to extend the hysterotomy incision on the left. The head was then delivered using fundal pressure. Nuchal cord x 1 reduced easily. The nose and mouth were bulb suctioned. the rest of the infant was then delivered without difficulty. The nose and mouth were again bulb suctioned. The cord was clamped and cut and the was then handed off to the awaiting pin puller for drying and attention. Cord blood and segment were obtained. The placenta was expressed. The uterus was exteriorized and cleared of all clot and debris with moistened laparotomy sponges. The hysterotomy incision was repaired in two layers, the first in a running locked layer, the second in an imbricating layer. Several figure of eight sutures of 0 vicryl were needed at the left corner of the incision. Hemostasis was noted to be good. Posterior cul-de-sac was irrigated and cleared of all clot and debris. A bilateral modified damaso tubal ligation was then performed. first on the right and then on the left a segment of tube was grasped with a Benwood. it was sutured with 2-0 plain gut times two. the segment was removed with scissors and the edges were cauterized. This was repeated on the left. The hysterotomy incision was again inspected and found to be hemostatic. the uterus was reinteriorized. Hysterotomy incision was again inspected and two more 0 vicryl stitches were placed. Anat was then used on this area and pressure was held for 2 minutes. Hemostasis was then noted to be good. Rectus muscles were reapproximated with several interrupted stitches of 0 Vicryl. The fascia was then reapproximated with 0 Vicryl starting at the edges and meeting in the midline. The subcuticular tissues were copiously irrigated and bleeding was attended to with cautery. The skin was then closed with 4-0 Vicryl in a subcuticular fashion. All sponge lap and needle counts were correct x 2. the patient was taken to recovery in stable condition. UOP --100cc, concentrated but clear urine. I attest to the content of the Intraoperative Record and any orders documented therein. Any exceptions are noted below. OB Procedure Charges [id number] Add on Tubal for C/S
[2021-09-16 04:35] LABS: Base Excess Cord Arterial Bld -1.3 mEq/L (-9-1.8); CO2 Cord Arterial Blood 61 mmHg (39.1-73.5); HCO3 Cord Arterial Blood 27 mmol/L (19.7-28.5); PO2 Cord Arterial Blood 18 mmHg (4.1-31.7); pH Cord Arterial Blood 7.26 (7.1-7.38)
[2021-09-16 04:36] LABS: Base Excess Cord Venous Blood -0.7 mEq/L (-7.7-1.9); Cord Venous Blood HCO3 26 mmol/L (18.4-26.8); Cord Venous Blood PCO2 48 mmHg (30.4-57.2); Cord Venous Blood PO2 27 mmHg (14.1-43.3); Cord Venous Blood pH 7.34 (7.20-7.44); O2 Saturation Cord Venous Bld < 60.0 % (<68); Oxygen Sat Cord Arterial Blood < 60.0 % (<60)
--- NOTE | 2021-09-16 04:43 | Anesthesiology Progress Note ---
Date of Service September 16, 2021 Anesthesia Post Procedure Vital Signs Vital Signs: Temp Pulse Resp BP Pulse Ox 09/16/21 03:34 80 100 09/16/21 03:31 81 135/66 09/16/21 03:29 78 100 09/16/21 03:24 81 100 09/16/21 03:21 76 130/60 09/16/21 03:19 81 100 09/16/21 03:14 95 H 100 09/16/21 03:11 82 127/64 09/16/21 03:09 76 100 09/16/21 03:04 83 100 09/16/21 03:01 86 124/59 L 09/16/21 02:59 68 100 09/16/21 02:54 92 H 100 09/16/21 02:51 88 124/59 L 09/16/21 02:50 18 09/16/21 02:49 77 100 09/16/21 02:44 79 100 09/16/21 02:41 78 115/61 09/16/21 02:40 18 09/16/21 02:39 98 H 100 09/16/21 02:34 74 100 09/16/21 02:31 76 119/66 09/16/21 02:30 18 09/16/21 02:29 82 100 09/16/21 02:24 87 100 09/16/21 02:21 91 H 117/68 09/16/21 02:20 18 09/16/21 02:19 83 100 09/16/21 02:14 93 H 100 09/16/21 02:11 86 116/68 09/16/21 02:10 18 09/16/21 02:09 80 100 09/16/21 02:05 79 119/65 09/16/21 02:04 93 H 100 09/16/21 02:01 83 115/63 09/16/21 02:00 18 09/16/21 01:59 EST 79 100 09/16/21 01:54 EST 93 H 100 09/16/21 01:52 EST 88 135/60 09/16/21 01:51 EST 84 103/72 09/16/21 01:49 EST 90 100 09/16/21 01:44 EST 96 H 100 09/16/21 01:41 EST 102 H 124/64 09/16/21 01:39 EST 94 H 100 09/16/21 01:34 EST 102 H 99 09/16/21 01:31 EST 85 123/62 09/16/21 01:29 EST 90 99 09/16/21 01:24 EST 93 H 99 09/16/21 01:21 EST 84 129/63 09/16/21 01:19 EST 82 98 09/16/21 01:14 EST 81 98 09/16/21 01:11 EST 77 128/58 L 09/16/21 01:09 EST 79 98 09/16/21 01:06 EST 76 131/63 09/16/21 01:05 EST 88 88 L 09/16/21 01:04 EST 80 100 09/16/21 01:01 EST 83 117/59 L 09/16/21 01:51 EDT 18 09/15/21 21:18 37.1 C 18 09/15/21 21:14 88 139/83 Pain Intensity Upper Abdomen: Pain Intensity: 2 Transfer of Care Handoff Completed per policy Notes Mental Status: alert / awake / arousable Patient Amnestic to Procedure: Yes Nausea / Vomiting: adequately controlled Pain: adequately controlled Airway Patency, RR, SpO2: stable & adequate BP & HR: stable & adequate Hydration State: stable & adequate Neuraxial Anesthesia: was administered and sensory block is resolving Anesthetic Complications: no major complications apparent
[2021-09-16] MEDS ORDERED: CITRIC ACID/SODIUM CITRATE 15 ML UDC PO SCH (06:00)
[2021-09-16] MEDS: DOCUSATE SODIUM 100 MG CAP PO SCH ×2 (08:43→21:09)
[2021-09-16] MEDS: PRENATAL VITAMIN 1 TAB PO SCH (08:43)
[2021-09-16] MEDS: SIMETHICONE 80 MG CHEW PO SCH ×4 (08:43→21:09)
[2021-09-16] MEDS: FERROUS SULFATE 325 MG TAB PO SCH (08:43)
[2021-09-16] MEDS ORDERED: MEPERIDINE HCL 50 MG/ML CARP IV PRN (17:58)
[2021-09-16] MEDS ORDERED: diphenhydrAMINE Capsule 25 MG CAP PO PRN (17:58)
[2021-09-16] MEDS ORDERED: PROMETHAZINE HCL 25 MG in SODIUM CHLORIDE 0.9% 50 ML IV PRN (17:58)
[2021-09-16] MEDS: oxyCODONE/ACETAMINOPHEN 5mg/325mg TAB PO PRN (21:09)
[2021-09-17] MEDS: IBUPROFEN 600 MG TAB PO PRN ×4 (02:04→20:37)
[2021-09-17] MEDS: oxyCODONE/ACETAMINOPHEN 5mg/325mg TAB PO PRN ×4 (02:04→20:38)
--- NOTE | 2021-09-17 06:30 | Obstetrical Progress Note ---
Date of Service <Lyle Pearson DO - Last Filed: 09/17/21 07:30> September 17, 2021 Assessment & Plan <Lyle Pearson DO - Last Filed: 09/17/21 07:30> (1) Encounter for care and examination after delivery: 26 yo post op day 1 from , doing well. -Continue routine post care. - vital sings reviewed and WNL. (Tmax 37.1) -Blood type O+, GBS -, Rubella Immune -Encourage ambulation, monitor and control pain with Motrin, tylenol PRN, resume regular diet, monitor lochia. <Sherie Edwards MD, FACOG - Last Filed: 09/17/21 07:35> (1) Encounter for care and examination after delivery: Subjective <Lyle Pearson DO - Last Filed: 09/17/21 07:30> Ambulation: ambulating normally Voiding: no voiding problems Passing Gas:: Yes Diet Tolerance:: regular diet Lochia:: Moderate Feeding Type:: bottle feeding Current Pain Level(1-10): 3 Review of Systems Denies fever, chills, sweats Denies shortness of breath, difficulty breathing, chest pain, palpitations, chest pressure. Denies breast pain. Denies dysuria. Denies headache or changes in vision Physical Exam <Lyle Pearson DO - Last Filed: 09/17/21 07:30> General: Alert, oriented. No acute distress. Cardiac: Regular rate and rhythm, no murmurs/rubs/gallops. Respiratory: Clear to auscultation bilaterally a/p, no wheezes/rales/rhonchi. No increased work of breathing. Symmetrical chest rise. No respiratory distress. Abdomen: Soft, nontender, nondistended. Bowel sounds present. Uterus: Uterine fundus firm, palpable 2 cm below umbilicus. Surgical scar clean and healing well. Lower Extremities: No lower extremity edema or swelling. No deep calf pain. Julio's negative bilaterally Results & Data ([facility]) <Lyle Pearson DO - Last Filed: 09/17/21 07:30> Vital Signs (Past 12 Hours) Vital Signs Temp Pulse Resp BP Pulse Ox 09/16/21 23:50 36.8 C 89 18 108/66 97 09/16/21 19:00 36.9 C 97 H 16 119/76 99 <Sherie Edwards MD, FACOG - Last Filed: 09/17/21 07:35> Co-Signing Physician Notes Resident Physician Supervision Note: I interviewed and examined the patient. Discussed with Dr. Pearson and agree with findings and plan as documented in the note. Any exceptions or clarifications are listed here: Doing well. Routine PPD/POD 2 care. Documented By: Sherie Edwards MD, FACOG Resident Activity Tracking <Lyle Pearson DO - Last Filed: 09/17/21 07:30> Resident Involvement: Resident Care Provided Care Provided: OB Delivery
[2021-09-17 06:54] LABS: Basophils # (auto) 0.01 K/uL (0-0.2); Basophils % (auto) 0.1 %; Eosinophils # (auto) 0.06 K/uL (0-0.5); Eosinophils % (auto) 0.5 %; Hematocrit (blood only) 33.5 % (37-47); Immature Granulocytes # (auto) 0.03 K/uL (0.00-0.02); Immature Granulocytes % (auto) 0.2 %; Lymphocytes # (auto) 2.13 K/uL (1.2-3.4); Lymphocytes % (auto) 17.6 %; Mean Corpuscular Hemoglobin 29.9 pg (25-34); Mean Corpuscular Hgb Conc 32.8 g/dL (32-36); Mean Platelet Volume 10.2 fL (7.4-10.4); Monocytes # (auto) 0.79 K/uL (0.11-0.59); Monocytes % (auto) 6.5 %; Neutrophils # (auto) 9.05 K/uL (1.4-6.5); Neutrophils % (auto) 75.1 %; Platelet Count 179 K/uL (130-400); RDW Coefficient of Variation 13.6 % (11.5-14.5); RDW Standard Deviation 44.8 fL (36.4-46.3); Red Blood Count 3.68 M/uL (4.2-5.4); White Blood Count 12.07 K/uL (4.8-10.8)
[2021-09-17] MEDS: SIMETHICONE 80 MG CHEW PO SCH ×4 (08:58→21:09)
[2021-09-17] MEDS: DOCUSATE SODIUM 100 MG CAP PO SCH ×2 (09:01→21:09)
[2021-09-17] MEDS: PRENATAL VITAMIN 1 TAB PO SCH (09:01)
[2021-09-17] MEDS: FERROUS SULFATE 325 MG TAB PO SCH (09:02)
[2021-09-17] MEDS: SERTRALINE HCL 50 MG TABLET PO SCH (09:03)
[2021-09-17] MEDS ORDERED: bisacodyL 5 MG TABEC PO SCH (20:00)
[2021-09-18] MEDS: IBUPROFEN 600 MG TAB PO PRN ×2 (00:41→06:04)
[2021-09-18] MEDS: oxyCODONE/ACETAMINOPHEN 5mg/325mg TAB PO PRN (00:42)
[2021-09-18] MEDS ORDERED: bisacodyL 10 MG SUPP PR PRN (01:48)
[2021-09-18 06:10] LABS: Hematocrit (blood only) 32.6 % (37-47)
--- NOTE | 2021-09-18 06:57 | Obstetrical Progress Note ---
Date of Service <Lyle Pearson DO - Last Filed: 09/18/21 08:44> September 18, 2021 Assessment & Plan <Lyle Pearson DO - Last Filed: 09/18/21 08:44> (1) Encounter for care and examination after delivery: 26 yo post op day 1 from , doing well. -Continue routine post care. - vital sings reviewed and WNL. (Tmax 37.1) -Blood type O+, GBS -, Rubella Immune -Encourage ambulation, monitor and control pain with Motrin, tylenol PRN, resume regular diet, monitor lochia. -Hemoglobin 11.0 -Discussed discharge with the patient. She will follow up in clinic in 6 weeks. <Chase Marrufo MD - Last Filed: 09/19/21 12:57> (1) Encounter for care and examination after delivery: Subjective <Lyle Pearson - Last Filed: 09/18/21 08:44> Ambulation: ambulating normally Voiding: no voiding problems Passing Gas:: Yes Diet Tolerance:: regular diet Lochia:: Small Feeding Type:: bottle feeding Current Pain Level(1-10): 0 Review of Systems Denies fever, chills, sweats Denies shortness of breath, difficulty breathing, chest pain, palpitations, chest pressure. Denies breast pain. Denies dysuria. Denies headache or changes in vision Physical Exam <Lyle Pearson DO - Last Filed: 09/18/21 08:44> General: Alert, oriented. No acute distress. Cardiac: Regular rate and rhythm, no murmurs/rubs/gallops. Respiratory: Clear to auscultation bilaterally a/p, no wheezes/rales/rhonchi. No increased work of breathing. Symmetrical chest rise. No respiratory distress. Abdomen: Soft, nontender, nondistended. Bowel sounds present. Uterus: Uterine fundus firm, palpable 2 cm below umbilicus. Surgical scar clean and healing well. Lower Extremities: No lower extremity edema or swelling. No deep calf pain. Julio's negative bilaterally Results & Data ([facility]) <Lyle Irahetaisaiasmichael - Last Filed: 09/18/21 08:44> Vital Signs (Past 12 Hours) Vital Signs Temp Pulse Resp BP Pulse Ox 09/18/21 00:35 36.6 C 89 16 124/79 96 <Chase Marrufo MD - Last Filed: 09/19/21 12:57> Co-Signing Physician Notes Patient seen and evaluated and agree with the above findings and plan. Routine post care. Resident Activity Tracking <Lyle Pearson DO - Last Filed: 09/18/21 08:44> Resident Involvement: Resident Care Provided Care Provided: OB Delivery
[2021-09-18] MEDS: PRENATAL VITAMIN 1 TAB PO SCH (08:11)
[2021-09-18] MEDS: SIMETHICONE 80 MG CHEW PO SCH (08:12)
[2021-09-18] MEDS: DOCUSATE SODIUM 100 MG CAP PO SCH (08:12)
[2021-09-18] MEDS: SERTRALINE HCL 50 MG TABLET PO SCH (08:12)
[2021-09-18] MEDS: FERROUS SULFATE 325 MG TAB PO SCH (08:12)
== END 2021-09-18 11:55 | disposition home or self-care (01) | DRG 785 ==
LOC: OPB 20:59 → 4S1 21:02 → 4S2 09-16 03:40